=== PATIENT | male | born 1970 | race Caucasian/White ===

== ENCOUNTER → 2019-01-29 08:21 | Outpatient (CLI) | payer BC, SELFPAY ==
[2019-01-29 07:48] VITALS: BMI 33.3
--- NOTE | 2019-01-29 08:43 | EKG12_ITS ---
Test Reason : HTN, PALP Blood Pressure : / mmHG Vent. Rate : 070 BPM Atrial Rate : 070 BPM P-R Int : 154 ms QRS Dur : 092 ms QT Int : 388 ms P-R-T Axes : 069 054 036 degrees QTc Int : 419 ms Normal sinus rhythm Possible Left atrial enlargement Borderline ECG Confirmed by JOANNA PABLO, SRAVANTHI ([id number]), school photograph editor RICHIE ARELLANO ([id number]) on 02/02/2019 8:49:09 AM Referred By: Adam Cardona Confirmed By:SRAVANTHI MARSHALL MD
[2019-01-29 13:13] LABS: Absolute Lymphocyte Count 1.42 X10^3/ul (0.83-4.51); Absolute Neutrophil Count 4.6 X10^3/uL (2.0-7.7); Basophil# 0.02 X10^3/uL; Basophil% 0.3 % (0-1); Eosinophil# 0.17 X10^3/uL; Eosinophils% 2.4 % (0-5); Hematocrit 48.4 % (40-54); Hemoglobin 15.5 g/dl (13.0-16.5); Lymphocyte # 1.42 X10^3/ul (4.0); Lymphocyte % 20.1 % (19-41); Mean Corpuscular Hgb 30.5 pg (27.0-32.0); Mean Corpuscular Volume 95.1 fL (80-94); Mean Platelet Vol. 12.1 fl (6.2-12.0); Monocyte# 0.82 X10^3/uL; Monocyte% 11.6 % (0-10); Neutrophil % 65.2 % (47-70); Platelet Count 238 K/mm3 (150-450); RBC Distribution Width CV 13.6 % (11.6-14.6); RBC Distribution Width SD 46.1 fl (35.1-43.9); Red Blood Count 5.09 M/mm3 (4.6-6.2); White Blood Count 7.1 K/mm3 (4.4-11.0)
[2019-01-29 13:18] LABS: POSITIVE COUNT NO; POSITIVE DIFFERENTIAL NO; POSITIVE MORPHOLOGY NO
[2019-01-29 13:30] LABS: ALB/GLOB Ratio 1.1 RATIO (0.9-2.4); AST(SGOT) 25 U/L (15-37); Alanine Aminotransfer ALT/SGPT 47 U/L (16-61); Albumin, Serum 3.8 g/dL (3.2-5.0); Alkaline Phosphatase 80 U/L (45-117); Anion Gap 8 (5-15); BUN 10 mg/dL (7-18); BUN/Creat Ratio 10.5 RATIO (10-20); Calcium,Total 8.7 mg/dL (8.5-10.1); Chloride 107 mmol/L (98-107); Cholesterol 204 mg/dL (200); Creatinine, Serum 0.95 mg/dL (0.70-1.30); EST Glomerular Filtration Rate 90 mL/min (>60); Est Glom Filt Rate - Afr Amer 109 mL/min (>60); Globulin 3.5 g/dL (2.2-4.2); Glucose 101 mg/dL (74-106); High Density Lipoprotein 49 mg/dL; Magnesium 2.4 mg/dL (1.6-2.6); Potassium 4.1 mmol/L (3.5-5.1); Protein, Total 7.3 g/dL (6.4-8.2); Sodium Level 143 mmol/L (136-145); T4 Free Direct 0.88 ng/dL (0.76-1.46); Thyroid Stim Hormone (TSH) 0.64 uIU/mL (0.358-3.74); Triglycerides 112 mg/dL; Very Low Density Lipoprotein 22 mg/dL (5-40)
== END ==
PROVIDERS: Family Provider Internal Medicine; PCP Internal Medicine; Referring Provider Nurse Practitioner Family; Visit Provider Nurse Practitioner Family
DX: I10 Essential (primary) hypertension (principal); R00.2 Palpitations; R07.89 Other chest pain
CPT/HCPCS: 36415; 80053; 80061; 83735; 84439; 84443; 85025; 93005; 93225; 93226

== ENCOUNTER → 2019-05-20 | Outpatient (CLI) | payer BC, SELFPAY ==
[2019-05-18 14:57] VITALS: BMI 33.3
[2019-05-20 08:14] LABS: Bacteria 0 SEEN /hpf (None Seen); Mucous, Urine 0 SEEN /hpf (<or=2+); Squamous Epithelial Cells - UA 0 SEEN /hpf (0-5)
[2019-05-20 12:37] LABS: Color, Urine Yellow (Yellow); Glucose, Dipstick Normal (Normal); Ketone-Dipstick 5 mg/dl (Negative); Leukocyte Esterase-Dipstick 25 /ul (Negative); Nitrite-Dipstick Negative (Negative); Occult Blood-Urine 25 /ul (Negative); Protein-Dipstick 15 mg/dl (Negative); Specific Gravity, Urine 1.025 (1.002-1.030); Urine Bilirubin Dipstick Negative (Negative); Urine Clarity Clear (Clear); Urine Urobilinogen Normal (Normal)
[2019-05-20 12:40] LABS: Red Blood Cells-Urine 0-5 SEEN /hpf (0-5); White Blood Cells 0-5 SEEN /hpf (0-5)
[2019-05-20 14:58] LABS: Chlamydia Trachomatis by PCR Negative (Negative); Neisserai gonorrhoeae by PCR Negative (Negative); Probe Check PASS; Sample Adequacy Control PASS; Specimen Processing Control PASS
[2019-05-28 20:06] LABS: Ca Oxalate, Dihydrate 40 % (.); Ca Oxalate, Monohydrate 55 % (.)
== END | disposition home or self-care (01) ==
LOC: BIMLAB 08:13
PROVIDERS: Family Provider Internal Medicine; PCP Internal Medicine; Visit Provider Nurse Practitioner Family
DX: R30.0 Dysuria (principal); N20.0 Calculus of kidney; Z72.51 High risk heterosexual behavior
CPT/HCPCS: 81001; 82360; 87086; 87210; 87491; 87591

== ENCOUNTER → 2020-02-02 | Outpatient (CLI) | payer BC, SELFPAY ==
[2020-02-02 10:07] VITALS: BMI 34.8
--- NOTE | 2020-02-02 10:50 | EKG12_ITS ---
Test Reason : PVC Blood Pressure : / mmHG Vent. Rate : 072 BPM Atrial Rate : 072 BPM P-R Int : 160 ms QRS Dur : 102 ms QT Int : 388 ms P-R-T Axes : 072 055 050 degrees QTc Int : 424 ms Normal sinus rhythm Normal ECG Confirmed by CAMILLE DORAN ([id number]), electronic news gathering editor ELOISE BOLAND ([id number]) on 02/03/2020 7:20:25 AM Referred By: Adam Cardona Confirmed By:CAMILLE DORAN
--- NOTE | 2020-02-02 10:51 | RAD_ITS ---
STUDY: X-RAY - LUMBAR SPINE REASON FOR EXAM: Male, 49 years old. CHRONIC LOW BACK PAIN, MORE RECENTLY ACUTE TECHNIQUE: 3 view(s) of the lumbar spine were obtained. COMPARISON: 08/01/2016 FINDINGS: Normal lumbar lordosis. Mild dextroscoliosis centered at L3. There is a normal alignment of the vertebrae. There is multilevel endplate spondylosis of the lumbar vertebrae. There is multi-level degenerative disc disease with multi-level disc space narrowing. The soft tissue structures are unremarkable. RAD/Lumbar Spine 2 or 3 Views IMPRESSION: Mild dextroscoliosis and mild diffuse degenerative disc disease. Electronically Signed: Douglas Ivan MD at 14:52 EDT Tel , Service support ,
== END | disposition home or self-care (01) ==
LOC: RAD 10:50
PROVIDERS: PCP Internal Medicine; Referring Provider Nurse Practitioner Family; Visit Provider Nurse Practitioner Family
DX: M54.41 Lumbago with sciatica, right side (principal); G89.29 Other chronic pain; I10 Essential (primary) hypertension
CPT/HCPCS: 72100; 93005

== ENCOUNTER → 2020-05-30 | Outpatient (CLI) | payer BC, SELFPAY ==
[2020-05-30 09:39] VITALS: BMI 34.8
[2020-05-30 12:48] LABS: Hematocrit 47.3 % (40-54); Hemoglobin 15.3 g/dL (13.0-16.5); Mean Corp Hgb Conc 32.3 g/dL (32-36); Mean Corpuscular Volume 95.9 fL (80-94); Mean Platelet Vol. 11.7 fl (6.2-12.0); Platelet Count 229 K/mm3 (150-450); RBC Distribution Width CV 13.2 % (11.6-14.6); RBC Distribution Width SD 46.5 fl (35.1-43.9); Red Blood Count 4.93 M/mm3 (4.6-6.2); White Blood Count 7.7 K/mm3 (4.4-11.0)
[2020-05-30 13:36] LABS: AST(SGOT) 28 U/L (15-37); Alanine Aminotransfer ALT/SGPT 58 U/L (16-61); Albumin, Serum 3.8 g/dL (3.2-5.0); Alkaline Phosphatase 87 U/L (45-117); Anion Gap 7 (5-15); BUN 13 mg/dL (7-18); BUN/Creat Ratio 13.3 RATIO (10-20); Calcium,Total 8.6 mg/dL (8.5-10.1); Chloride 104 mmol/L (98-107); Cholesterol 224 mg/dL (200); Creatinine, Serum 0.97 mg/dL (0.70-1.30); EST Glomerular Filtration Rate 87 mL/min (>60); Est Glom Filt Rate - Afr Amer 105 mL/min (>60); Globulin 3.7 g/dL (2.2-4.2); Glucose 96 mg/dL (74-106); High Density Lipoprotein 42 mg/dL; Potassium 3.7 mmol/L (3.5-5.1); Protein, Total 7.5 g/dL (6.4-8.2); Sodium Level 139 mmol/L (136-145); Thyroid Stim Hormone (TSH) 1.46 uIU/mL (0.358-3.74); Triglycerides 159 mg/dL; Very Low Density Lipoprotein 32 mg/dL (5-40)
[2020-05-31 07:33] LABS: SARS-COV-2 TOTAL ABS Nonreactive (Nonreactive)
== END | disposition home or self-care (01) ==
LOC: BIMLAB 10:06
PROVIDERS: PCP Internal Medicine; Referring Provider Nurse Practitioner Family; Visit Provider Nurse Practitioner Family
DX: E78.00 Pure hypercholesterolemia, unspecified (principal); I10 Essential (primary) hypertension; K21.9 Gastro-esophageal reflux disease without esophagitis; Z11.59 Encounter for screening for other viral diseases
CPT/HCPCS: 36415; 80053; 80061; 84443; 85027; 86769; G2023

== ENCOUNTER → 2020-10-17 07:52 | Outpatient (CLI) | payer BC, SELFPAY ==
[2020-10-04 08:59] VITALS: BMI 34.3
--- NOTE | 2020-10-17 07:57 | ECHOD_ITS ---
Reason For Study: HTN Procedure This was a 2D Doppler, Color Flow transthoracic echocardiogram. The study was technically difficult. Contrast injection was performed. Exam performed in department. Left Ventricle Normal LV size. Left ventricular systolic function is normal. The estimated ejection fraction is 65 %. Stage 1 diastolic dysfunction. No regional wall motion abnormalities noted. Right Ventricle Normal RV size. Normal systolic function. Atria Normal left atrium. Normal right atrium. Mitral Valve Normal mitral valve. Tricuspid Valve Normal tricuspid valve. Mild (1+) tricuspid valve insufficiency. Pulmonary artery systolic pressure is 25 mmHg. Aortic Valve Trisinus/trileaflet aortic valve. Pulmonic Valve Normal pulmonic valve. Great Vessels Normal aortic root. The pulmonary artery is normal size. Normal inferior vena cava. Pericardium/Pleural No pericardial effusion. Medication 22 gauge I.V. with prn adaptor inserted into right arm. Diluted definity 4ml given slow IV push to enhance endocardial definition. MMode/2D Measurements & Calculations LVIDd: 4.5 cm IVSd: 1.2 cm Ao root diam: 3.6 cm LVIDs: 3.2 cm LVPWd: 0.98 cm RVDd: 2.9 cm FS: 28.6 % LAV(MOD-bp): 41.5 ml LVAd ap4: 34.8 cm2 SV(MOD-sp4): 76.7 ml LAV(MOD-bp) Indexed: 17.7 ml/m2 EDV(MOD-sp4): 101.3 ml LAV(MOD-sp2): 46.1 ml EDV(sp4-el): 104.4 ml LAV(MOD-sp4): 31.7 ml LVAs ap4: 15.5 cm2 ESV(MOD-sp4): 24.5 ml ESV(sp4-el): 25.8 ml EF(MOD-sp4): 75.8 % EF(sp4-el): 75.3 % SV(sp4-el): 78.6 ml LA A4 area: 13.9 cm2 LA dimension(2D): 4.0 cm RA A4 area: 10.4 cm2 Time Measurements MV dec time: 0.22 sec Doppler Measurements & Calculations MV E max wayne: 104.6 cm/sec Lat Peak E' Wayne: 8.6 cm/sec Med Peak E' Wayne: 7.4 cm/sec MV A max wayne: 118.1 cm/sec E/E' lat: 12.1 E/E' med: 14.1 MV E/A: 0.89 Ao V2 max: 146.3 cm/sec LV V1 max: 136.8 cm/sec PA V2 max: 109.6 cm/sec Ao max P.6 mmHg LV V1 max P.5 mmHg TR max wayne: 238.5 cm/sec TR max P.8 mmHg Interpretation Summary Normal LV size. Left ventricular systolic function is normal. The estimated ejection fraction is 65 %. Stage 1 diastolic dysfunction. Contrast injection was performed. Ordering Physician: Luigi Jaime Referring Physician: Eri Melgar Performed By: Le Donaldson, JYOTI, RVT
== END ==
PROVIDERS: PCP Internal Medicine; Referring Provider Internal Medicine Cardiovascular Disease; Visit Provider Internal Medicine Cardiovascular Disease
DX: I10 Essential (primary) hypertension (principal)
CPT/HCPCS: 93306; Q9957; A4216; C8929

== ENCOUNTER 2021-03-09 19:16 | Emergency (ER) | payer BC, SELFPAY ==
[2020-10-04 08:59] VITALS: BMI 34.3
[2021-03-09 19:17] VITALS: BP 169/100; PULSE 77; RESP 16; TEMP 36.4; O2SAT 97; BMI 33.2
--- NOTE | 2021-03-09 19:57 | ED.DCSUM_ITS ---
- ER Visit Summary Date of Service: 03/09/21 Chief Complaint: Left ring finger laceration History of Present Illness: The patient is a 50 M who presents with laceration to his left ring finger that occurred today. Patient states he was putting [place] in a truck when he got his finger smashed between 2 pieces of [place]. Patient denies any paresthesias or weakness. Patient states his last tetanus is up-to-date. Patient dates the bleeding stopped after several minutes of pressure. Physical Examination: Vital signs are stable. Patient is afebrile. Patient is in no acute distress. Skin is warm and dry. There is a 3 cm curvilinear laceration over the pad of the left ring finger. There is mild bleeding. There are no foreign bodies visualized. Sensation was intact to light touch in all digits. Capillary refill was less than 2 seconds in all digits. Strength is 5/ 5 in flexion and extension of the DIP, PIP, and MP joints. Test Results: X-rays of the left ring finger were obtained. There are 3 views. On my interpretation, there is no acute fracture. There is no dislocation. There is some mild soft tissue swelling with injury. Radiologist also interpreted the x-rays and agrees. Emergency Department Course and Treatment: The wound was cleaned and irrigated with copious amounts of normal saline. The wound was anesthetized with 1% plain lidocaine via digital block. The wound was closed with 6 simple interrupted #4- 0 nylon sutures under sterile technique. Patient tolerated the procedure well. Bacitracin dressing was applied. Patient was given his first dose of Keflex here. Patient was given a prescription for Keflex. Patient was instructed to follow-up with his primary care physician in 7 days for wound recheck and suture removal. Patient understood and was agreeable with the plan. All questions were answered.. Disposition: Discharge home Impression: Laceration left ring finger This note was generated with [employer] dictation software. It may contain incorrect words, spelling, and punctuation that were not noted in review of the chart prior to signing ED Disposition - Plan for ED Patient: Disposition: Home or Assisted Living Diagnosis: Laceration of left ring finger w/o foreign body w/o damage to nail Instructions: ED Laceration, Hand: All Closures Prescriptions: Cephalexin [Keflex] 500 mg PO Q6 #40 capsule Transmission Status: Pending to [facility]/pharmacy #[id number] Referrals: Eri Melgar MD [Primary Care Provider] - 7 Days for suture removal
--- NOTE | 2021-03-09 20:00 | RAD_ITS ---
STUDY: X-RAY - LEFT HAND, ATTENTION 4TH FINGER REASON FOR EXAM: Male, 50 years old. Injury/Pain TECHNIQUE: 3 view(s) of the finger were obtained. COMPARISON: None. FINDINGS: Normal metacarpal head. Normal metacarpophalangeal joint. Normal proximal phalanx. Normal middle phalanx. Normal distal phalanx. Normal proximal interphalangeal joint. Normal distal interphalangeal joint. There is soft tissue swelling with injury at the tip of the finger RAD/Finger(s) Min 2 Views IMPRESSION: Soft tissue injury at the tip of the finger without bony involvement. Electronically Signed: Enoch Rodriguez DO at 21:07 EDT Tel [phone], Service support ,
[2021-03-09] MEDS: Cephalexin 250 MG Capsule 500 MG PO (20:05)
[2021-03-09] MEDS: Lidocaine 1% (20 ml mdv) 20 ML Vial INFILT (20:05)
== END 2021-03-09 22:17 | disposition home or self-care (01) ==
PROVIDERS: Emergency Provider Emergency Medicine; PCP Internal Medicine
DX: S61.215A Laceration without foreign body of left ring finger without damage to nail, initial encounter (principal); I10 Essential (primary) hypertension; Z72.0 Tobacco use; W26.8XXA Contact with other sharp object(s), not elsewhere classified, initial encounter; Y93.89 Activity, other specified; Y92.89 Other specified places as the place of occurrence of the external cause; Y99.8 Other external cause status
CPT/HCPCS: 12002; 73140; 99284

== ENCOUNTER → 2021-11-01 14:44 | Outpatient (CLI) | payer BC, SELFPAY ==
[2021-11-01 16:41] LABS: Absolute Lymphocyte Count 1.87 X10^3/uL (0.83-4.51); Basophil# 0.05 X10^3/uL; Basophil% 0.5 % (0-1); Eosinophil# 0.21 X10^3/uL; Eosinophils% 2.3 % (0-5); Hemoglobin 16.1 g/dL (13.0-16.5); Lymphocyte # 1.87 X10^3/ul (0.83-4.51); Lymphocyte % 20.5 % (19-41); Mean Corp Hgb Conc 33.5 g/dL (32-36); Mean Corpuscular Hgb 30.7 pg (27.0-32.0); Mean Corpuscular Volume 91.4 fL (80-94); Mean Platelet Vol. 11.8 fl (6.2-12.0); NRBC Flagged by Analyzer 0 % (0-5); Neutrophil # 5.95 X10^3/uL (2.7-7.7); Neutrophil % 65.2 % (47-70); Platelet Count 268 K/mm3 (150-450); RBC Distribution Width SD 43.2 fl (35.1-43.9); Red Blood Count 5.25 M/mm3 (4.6-6.2); White Blood Count 9.1 K/mm3 (4.4-11.0)
[2021-11-01 17:04] LABS: ALB/GLOB Ratio 0.9 RATIO (0.9-2.4); AST(SGOT) 20 U/L (15-37); Alanine Aminotransfer ALT/SGPT 43 U/L (16-61); Albumin, Serum 3.7 g/dL (3.2-5.0); Alkaline Phosphatase 94 U/L (45-117); Anion Gap 7 (5-15); BUN 12 mg/dL (7-18); BUN/Creat Ratio 12.6 RATIO (10-20); Calcium,Total 8.7 mg/dL (8.5-10.1); Chloride 106 mmol/L (98-107); Creatinine, Serum 0.95 mg/dL (0.70-1.30); EST Glomerular Filtration Rate 89 mL/min (>60); Est Glom Filt Rate - Afr Amer 108 mL/min (>60); Globulin 3.9 g/dL (2.2-4.2); Glucose 98 mg/dL (74-106); Potassium 3.8 mmol/L (3.5-5.1); Protein, Total 7.6 g/dL (6.4-8.2); Sodium Level 140 mmol/L (136-145); T4 Free Direct 0.89 ng/dL (0.76-1.46); Thyroid Stim Hormone (TSH) 1.45 uIU/mL (0.358-3.74)
[2021-11-01 17:05] LABS: Microalbumin,Random Urine 35.3 mg/L (NO RANGE EST.); Microalbumin:Creatinine Ratio 14.1 mg/g CRE (<30 mg/g CRE)
== END ==
PROVIDERS: PCP Internal Medicine; Referring Provider Physician Assistant; Visit Provider Physician Assistant
DX: I10 Essential (primary) hypertension (principal); R42 Dizziness and giddiness; Z13.29 Encounter for screening for other suspected endocrine disorder
CPT/HCPCS: 36415; 80053; 82043; 82570; 84439; 84443; 85025

== ENCOUNTER 2022-02-06 09:53 | Outpatient (CLI) | payer BC, SELFPAY ==
[2022-02-06 10:26] LABS: Bacteria 0 SEEN /hpf (None Seen); Mucous, Urine 0 SEEN /hpf (<or=2+); Red Blood Cells-Urine 0 SEEN /hpf (0-5); Squamous Epithelial Cells - UA 0 SEEN /hpf (0-5); White Blood Cells 0 SEEN /hpf (0-5)
[2022-02-06 12:17] LABS: Color, Urine Yellow (Yellow); Glucose, Dipstick Normal (Normal); Ketone-Dipstick Negative (Negative); Leukocyte Esterase-Dipstick Negative /ul (Negative); Nitrite-Dipstick Negative (Negative); Occult Blood-Urine Negative /ul (Negative); Protein-Dipstick Negative (Negative); Urine Bilirubin Dipstick Negative (Negative); Urine Clarity Clear (Clear); Urine Urobilinogen Normal (Normal)
[2022-02-06 14:53] LABS: Chlamydia Trachomatis by PCR Negative (Negative); Neisserai gonorrhoeae by PCR Negative (Negative); Probe Check PASS; Sample Adequacy Control PASS; Specimen Processing Control PASS
== END 2022-02-06 23:59 | disposition home or self-care (01) ==
LOC: BIMLAB 09:54
PROVIDERS: PCP Internal Medicine; Visit Provider Nurse Practitioner Family
DX: R30.0 Dysuria (principal); Z12.5 Encounter for screening for malignant neoplasm of prostate
CPT/HCPCS: 36415; 81001; 84153; 87086; 87491; 87591; G0103

== ENCOUNTER → 2022-12-09 | Outpatient (CLI) | payer BC, SELFPAY ==
[2022-12-09 12:03] LABS: Absolute Lymphocyte Count 1.76 X10^3/uL (0.83-4.51); Basophil# 0.07 X10^3/uL; Basophil% 0.9 % (0-1); Eosinophils% 3.7 % (0-5); Hematocrit 47.4 % (40-54); Hemoglobin 15.5 g/dL (13.0-16.5); Lymphocyte # 1.76 X10^3/ul (0.83-4.51); Lymphocyte % 21.5 % (19-41); Mean Corp Hgb Conc 32.7 g/dL (32-36); Mean Corpuscular Hgb 30.4 pg (27.0-32.0); Mean Corpuscular Volume 92.9 fL (80-94); Mean Platelet Vol. 12.1 fl (6.2-12.0); Monocyte# 0.97 X10^3/uL; Monocyte% 11.9 % (0-10); NRBC Flagged by Analyzer 0 % (0-5); Neutrophil # 5.01 X10^3/uL (2.7-7.7); Neutrophil % 61.3 % (47-70); Platelet Count 232 K/mm3 (150-450); RBC Distribution Width SD 44.4 fl (35.1-43.9); White Blood Count 8.2 K/mm3 (4.4-11.0)
[2022-12-09 12:32] LABS: AST(SGOT) 23 U/L (15-37); Alanine Aminotransfer ALT/SGPT 49 U/L (16-61); Albumin, Serum 3.7 g/dL (3.2-5.0); Alkaline Phosphatase 96 U/L (45-117); Anion Gap 7 (5-15); BUN 15 mg/dL (7-18); BUN/Creat Ratio 14.6 RATIO (10-20); Calcium,Total 8.9 mg/dL (8.5-10.1); Chloride 107 mmol/L (98-107); Cholesterol 237 mg/dL (200); Creatinine, Serum 1.03 mg/dL (0.70-1.30); EST Glomerular Filtration Rate 81 mL/min (>60); Est Glom Filt Rate - Afr Amer 98 mL/min (>60); Globulin 3.8 g/dL (2.2-4.2); Glucose 109 mg/dL (74-106); High Density Lipoprotein 44 mg/dL; Potassium 3.8 mmol/L (3.5-5.1); Protein, Total 7.5 g/dL (6.4-8.2); Sodium Level 140 mmol/L (136-145); Thyroid Stim Hormone (TSH) 0.91 uIU/mL (0.358-3.74); Triglycerides 125 mg/dL; Very Low Density Lipoprotein 25 mg/dL (5-40)
== END | disposition home or self-care (01) ==
LOC: BIMLAB 09:01
PROVIDERS: PCP Internal Medicine; Referring Provider Physician Assistant; Visit Provider Physician Assistant
DX: I10 Essential (primary) hypertension (principal); E78.5 Hyperlipidemia, unspecified; K21.9 Gastro-esophageal reflux disease without esophagitis; F17.200 Nicotine dependence, unspecified, uncomplicated
CPT/HCPCS: 36415; 80053; 80061; 84443; 85025

== ENCOUNTER → 2023-09-06 | Outpatient (CLI) | payer BC, SELFPAY ==
--- NOTE | 2023-09-06 07:18 | MRI_ITS ---
STUDY: MRI THORACIC SPINE WITHOUT CONTRAST REASON FOR EXAM: Male, 53 years old. pain TECHNIQUE: Standardized fat and water weighted pulse sequences were obtained in the sagittal and axial planes. COMPARISON: None. FINDINGS: Normal kyphosis of the thoracic spine. There is no substantial scoliosis. T1-2, T2-3, T3-4, T4-5, T5-6, T6-7, T7-8, T8-9, T9-10, T10-11, T11-12: Normal endplates. Normal disc hydration, heights and morphology of the corresponding intervertebral discs. Normal central canal and intervertebral neural foramina at the corresponding levels. Normal visualized thoracic cord. Normal conus medullaris that terminates at the . The soft tissue structures are unremarkable. MRI/Spine Thoracic (Routine) IMPRESSION: Normal unenhanced MRI examination of the thoracic spine. Electronically Signed: Elvis Arias MD at 19:53 EDT ,
== END | disposition home or self-care (01) ==
LOC: MRI 07:13
PROVIDERS: PCP Internal Medicine; Visit Provider Orthopaedic Surgery
DX: M51.34 Other intervertebral disc degeneration, thoracic region (principal)
CPT/HCPCS: 72146

== ENCOUNTER → 2023-12-30 | Outpatient (CLI) | payer BC, SELFPAY ==
[2023-12-30 14:14] LABS: Bacteria 0 SEEN /hpf (None Seen); Mucous, Urine 0 SEEN /hpf (<or=2+); Red Blood Cells-Urine 0 SEEN /hpf (0-5); White Blood Cells 0 SEEN /hpf (0-5)
[2023-12-30 15:20] LABS: Color, Urine Yellow (Yellow); Glucose, Dipstick Normal (Normal); Ketone-Dipstick Negative (Negative); Leukocyte Esterase-Dipstick Negative /ul (Negative); Nitrite-Dipstick Negative (Negative); Occult Blood-Urine Negative /ul (Negative); Protein-Dipstick 15 mg/dl (Negative); Specific Gravity, Urine 1.005 (1.002-1.030); Urine Bilirubin Dipstick Negative (Negative); Urine Clarity Clear (Clear); Urine Urobilinogen Normal (Normal)
[2023-12-30 15:58] LABS: Squamous Epithelial Cells - UA 0-5 SEEN /hpf (0-5)
--- OUTSIDE RECORDS SUMMARY | 2023-12-30 18:01 | XMS RPT_ITS | CCD ---
Author Name Unknown Address [address] [place] [address] Organization [facility] Care Team Providers Care Shoe Sticks Repairer Name Role Phone PAM, BETTY Unavailable Unavailable [facility] Unavailable Unavailable PAM, BETTY Unavailable Unavailable PAM, BETTY Unavailable Unavailable PAM, BETTY Unavailable Unavailable PAM, BETTY Unavailable Unavailable PAM, BETTY Unavailable Unavailable PAM, BETTY Unavailable Unavailable PAM, BETTY Unavailable Unavailable DEBORAH QUEZADA. Unavailable Unavailable WAYT, BASILIA Unavailable Unavailable WAYT, BASILIA Unavailable Unavailable PAM, BETTY E Unavailable Unavailable PAM, BETTY E Unavailable Unavailable PAM, BETTY E Unavailable Unavailable PAM, BETTY E Unavailable Unavailable PAM, BETTY E Unavailable Unavailable PAM, BETTY E Unavailable Unavailable Unavailable Primary Care Provider UnavailEri Gonzales MD Primary Care Provider KAREN MERCEDES Attending Unavailable OLEGHE, EFEWONGBE B Primary Care Unavailable TOMIC, BRYCE Referring Unavailable OLEGHE, EFEWONGBE B Primary Care Unavailable TOMIC, BRYCE Attending Unavailable OLEGHE, EFEWONGBE B Referring Unavailable OLEGHE, EFEWONGBE B Primary Care Unavailable FATMATAGHE, EFEWONGBE B Primary Care Unavailable KAREN MERCEDES Referring Unavailable KAREN MERCEDES Attending Unavailable UJMANA, EFEWONGBE B Primary Care Unavailable KAREN MERCEDES Attending Unavailable KAREN MERCEDES Referring Unavailable JUMANA, EFEWONGBE B Primary Care Unavailable Medications Current Medications Medication Drug Class(es) Dates Sig (Normalized) Sig (Original) amLODIPine 5 mg / olmesartan medoxomil 40 mg oral tablet (9 sources) Dihydropyridine Calcium Channel Christiano, Angiotensin 2 Receptor Christiano Start: 05-16-2023 End: 05-15-2024 take 1 tablet by mouth once daily amLODIPine-Olmes bernadine 5-40 mg tab Take 1 tablet by mouth once daily. 90 tablet 3 05/16/2023 05/15/2024 Active Completed/Discontinued Medications Medication Drug Class(es) Dates Sig (Normalized) Sig (Original) carvedilol 12.5 mg oral tablet (8 sources) alpha-Adrenergic Christiano, beta-Adrenergic Christiano Start: 02-18-2022 End: 05-19-2023 take 1 tablet by mouth twice daily at mealtime carvedilol (COREG) 12.5 mg tablet Take 1 tablet by mouth twice daily with meals. 180 tablet 3 05/20/2023 Active Problems Active Problems Problem Classification Problem Date Documented Da te Episodic/Chronic Disorders of lipid metabolism (1 source) Dyslipidemia; Translations: [Hyperlipidemia, unspecified] 10-16-2023 Chronic Essential hypertension (14 sources) Essential (primary) hypertension; Translations: [Essential hypertension] Onset: 01-08-2017 01-08-2017 Chronic Other nutritional; endocrine; and metabolic disorders (7 sources) Obese class I; Translations: [Obesity, unspecified] Onset: 06-15-2021 06-15-2021 Chronic Unclassified (2 sources) Unknown / UNK(Unknown) Onset: 06-04-2017 Past or Other Problems Problem Classification Problem Date Documented Da te Episodic/Chronic Cardiac dysrhythmias (2 sources) Palpitations; Translations: [Palpitations] Onset: 10-22-2017 Episodic Unclassified (1 source) FLANK PAIN/KIDNEY STONE Onset: 06-04-2017 Results Test Name Value Interpretation Reference Range Facil ity Encounters Encounter Date Encounter Type Care Provider Facility Start: 11-13-2023 End: 11-13-2023 ambulatory ERI DENNEY Facility:[facility] Start: 10-10-2023 End: 10-10-2023 ambulatory Karen Mercedes APRN.CNP Work Phone: Preventive Cardiology Procedures Date Procedure Procedure Detail Performing Clinician Start: 02-18-2022 Lipid 1996 panel - S eloisa or Plasma Karen Mercedes APRN.CNP Work Phone: Start: 09-10-2021 Radex spine lumbosac ral minimum 4 views Maksim Pérez Smith Work Phone: Plan of Treatment Date Care Activity Detail Author Start: 03-13-2028 Urine microalbumin profile DTaP,Tdap,Td Vaccine (2 - Td or Tdap) [facility] Start: 02-18-2027 Lipid 1996 panel - Serum or Plasma Lipid Screening [facility] Start: 02-18-2027 LIPID SCREEN LIPID SCREEN [facility] Start: 06-19-2026 DIABETES SCREEN DIABETES SCREEN [facility] Start: 06-19-2026 Diabetes Screening Diabetes Screening [facility] Start: 02-18-2025 DIABETES SCREEN DIABETES SCREEN [facility] Start: 07-25-2023 Influenza vaccination INFLUENZA (#1) [facility] Start: 11-24-2022 DEPRESSION ASSESSMENT DEPRESSION ASSESSMENT [facility] Start: 2021 SHINGRIX VACCINE (1 of 2) SHINGRIX VACCINE (1 of 2) [facility] Start: 07-25-2021 Influenza vaccination Flu vaccine (#1) [facility] Work Phone: Start: 2016 COLOGUARD (FIT-DNA) COLOGUARD (FIT-DNA) [facility] Start: 2016 Colonoscopy COLONOSCOPY [facility] Start: 2016 COLORECTAL CANCER SCREENING COLORECTAL CANCER SCREENING [facility] Start: [address] COLONOGRAPHY [facility] Start: 2016 FECAL OCCULT BLOOD FECAL OCCULT BLOOD [facility] Start: 2016 SIGMOIDOSCOPY SIGMOIDOSCOPY [facility] Start: 1990 Urine microalbumin profile DTAP,TDAP,TD (1 - Tdap) [facility] Start: 1989 ANNUAL PCP TEAM CHRONIC DISEASE VISIT ANNUAL PCP TEAM CHRONIC DISEASE VISIT [facility] Start: 1989 BP CONTROLLED (<130/80) BP CONTROLLED (<130/80) [facility] in Start: 1989 HEPATITIS C SCREENING HEPATITIS C SCREENING [facility] Start: 1989 HIV SCREENING HIV SCREENING [facility] Start: 1983 COVID-19 Vaccine (1) COVID-19 Vaccine (1) [facility] Work Phone: Start: 1977 PNEUMOCOCCAL (1 - PCV) PNEUMOCOCCAL (1 - PCV) [facility] Start: 1977 Pneumococcal vaccination Pneumococcal Vaccine (1 - PCV) [facility] Start: 03-05-1972 COVID-19 VACCINE (#1) COVID-19 VACCINE (#1) [facility] Start: 1971 HEPATITIS B (1 of 3 - 3-dose series) HEPATITIS B (1 of 3 - 3-dose series) [facility] Start: 1971 Hepatitis B Vaccine (1 of 3 - 3-dose series) Hepatitis B Vaccine (1 of 3 - 3-dose series) [facility] End: 07-31-2024 US RENAL ARTERY/VEIN US RENAL ARTERY/VEIN Radiology Routine Primary hypertension 1 Occurrences starting 07/02/2023 until 07/31/2024 [facility] Work Phone: Payers Date Payer Category Payer Unknown LIS CECE CASIANO PPO [id number] 2020-Present [phone] [address] [place] [address] PPO [id number] 2020 Unknown [id number] 2015 Unknown [id number] Social History Date Type Detail Facility Tobacco smoking stat [facility] Unknown if ever smoked [facility] Work Phone: Start: 1971 Sex Assigned At Not on file [facility] Work Phone: Start: 11-12-2021 Tobacco smoking stat [facility] Smokes tobacco daily [facility] Work Phone: End: 03-23-2019 History of tobacco use Cigarette Smoker [facility] Work Phone: Start: 11-12-2021 End: 05-16-2023 Cigarettes smoked current (pack per day) - Reported 0.5 [facility] Start: 11-12-2021 Tobacco use and exposure Smokeless tobacco non-user [facility] Work Phone: Start: 02-18-2022 End: 10-16-2023 Alcohol intake Current non-drinker of alcohol (finding) [facility] Start: 1970 Sex Assigned At Male [facility] Start: 02-18-2022 End: 05-16-2023 Tobacco use panel [facility] Adult Depression Screening Assessment 0 [facility] Start: 07-09-2021 Gender identity Identifies as male gender (finding) [facility] Clinical Notes 05-16-2023 to 11-13-2023 Karen Mercedes APRN.JARVIS - 10/10/2023 8:00 AM Karen Cheek APRN.CNP - 07/02/2023 2:40 PM EDTTelephone Encounter - Bryce Fung APRN.CNP - 06/19/2023 8:58 AM EDT Note Date & Type Note Facility 11-13-2023 Note HNO ID: [id number] Author: Karen Mercedes APRN.JARVIS Service: ? Author Type: Nurse Practitioner Type: Progress Notes Filed: 11/13/2023 4:34 PM Note Text: [facility] Department of Cardiovascular Medicine SECTION OF PREVENTIVE CARDIOLOGY VIRTUAL VISIT This is a virtual video visit. It required patient-provider interaction for the medical decision making as documented below. Jackson Milan has consented to this video encounter. I have communicated my name and active licensure. The patient's identity and physical location were verified at the time of this visit. Either the patient or their legal international sales representative has been informed of the risks and benefits of -- and alternatives to -- treatment through a remote evaluation and consents to proceed with the evaluation remotely. November 13, 2023 Jackson Milan CURRENT MEDS: Current Outpatient Medications Medication Sig hydrALAZINE (APRESOLINE) 10 mg tablet Take 1 tablet by mouth three times a day. carvedilol (COREG) 12.5 mg tablet Take 1 tablet by mouth twice daily with meals. amLODIPine-Olmesartan 5-40 mg tab Take 1 tablet by mouth once daily. omeprazole (PRILOSEC) 40 mg capsule Take 40 mg by mouth once daily. No current facility-administered medications for this visit. ALLERGIES: ALLERGIES No Known Allergies CHIEF COMPLAINT: Jackson Milan is a 53 year old male seen today. Patient presents with: Hypertension HISTORY OF PRESENT CARDIOVASCULAR ILLNESS: 53 year old male with history of obesity, smoking, dyslipidemia and hypertension presents for ongoing management of cardiovascular risk factors. since last visit he has felt well, currently fighting off a cold, symptoms are improving BP remains elevated with values around 150/89 158/87 not much sodium in his diet - most meals are low or no sodium, salt free pretzels for snack no structured exercise, though physically active at work Denies Chest discomfort, SOB at rest, CONKLIN, lightheadedness, dizziness, diaphoresis, N/V, orthopnea, PND, palpitations or pedal edema. CARDIAC RISK FACTORS: History question Answer Diagnosis Date Comment Hypertension : Hypertension 11/24/2013 History question Answer Diagnosis Date Comment Dyslipidemia : Dyslipidemia 08/25/2018 Exercise: Dont't know Family History of CAD: Negative Avg. Sleep Hours Per Night?: 7 STATIN INTOLERANCE: Adverse Effect History of Statin Intolerance:: No Current Statin Freq: None FAMILY AND SOCIAL HISTORY Lifestyle Tobacco Use: 0.25 packs/day Quit 03/23/2019. Types: Cigarettes Alcohol Use: No Virtual Visit, No vital signs or physical exam performed for this visit Clinical Test Results Ejection Fraction: Ejection Fraction: Normal (>50%) Lab Results: Cholesterol, Total Date Value Ref Range Status 02/18/2022 192 <200 mg/dL Final Comment: <200 mg/dL, Desirable 200-239 mg/dL, Borderline high >239 mg/dL, High Triglyceride Date Value Ref Range Status 02/18/2022 99 <150 mg/dL Final Comment: <150 mg/dL, Normal 150-199 mg/dL, Borderline high 200-499 mg/dL, High >499 mg/dL, Very high HDL Cholesterol Date Value Ref Range Status 02/18/2022 39 (L) >39 mg/dL Final Comment: 40-59 mg/dL, Acceptable >59 mg/dL, High: Negative risk factor for coronary heart disease <40 mg/dL, Low: Positive risk factor for coronary heart disease LDL Cholesterol Date Value Ref Range Status 02/18/2022 133 (H) <100 mg/dL Final Comment: <100 mg/dL, Optimal 100-129 mg/dL, Near optimal/above optimal 130-159 mg/dL, Borderline high 160-189 mg/dL, High >189 mg/dL, Very high Secondary prevention optimal LDL Cholesterol levels are recommended to be < 70 mg/dL ALT Date Value Ref Range Status 02/18/2022 25 10 - 54 U/L Final Glucose Date Value Ref Range Status 06/19/2023 94 74 - 99 mg/dL Final Comment: The [place] [employer] (ADA) provides guidance for cutoff values for fasting glucose and random glucose. The ADA defines fasting as no caloric intake for at least 8 hours. Fasting plasma glucose results between 100 to 125 mg/dL indicate increased risk for diabetes (prediabetes). Fasting plasma glucose results greater than or equal to 126 mg/dL meet the criteria for diagnosis of diabetes. In the absence of unequivocal hyperglycemia, results should be confirmed by repeat testing. In a patient with classic symptoms of hyperglycemia or hyperglycemic crisis, random plasma glucose results greater than or equal to 200 mg/dL meet the criteria for diagnosis of diabetes. Reference: Standards of Medical Care in Diabetes 2016, [place] [employer]. Diabetes Care. 2016.39(Suppl 1). Albumin/Creat Ratio Date Value Ref Range Status 02/18/2022 <22 <30 mg/g Final Comment: Adult Male and Female Nephrotic Criteria: <30 mg/g is considered normal to mildly increased 30-300 mg/g is considered moderately increased (more content not included)... [facility] 10-10-2023 Note HNO ID: [id number] Author: Karen Mercedes APRN.DOWEL SETTING MACHINE OPERATOR Service: ? Author Type: Nurse Practitioner Type: Progress Notes Filed: 10/16/2023 11:45 PM Note Text: [facility] Department of Cardiovascular Medicine SECTION OF PREVENTIVE CARDIOLOGY VIRTUAL VISIT This is a virtual video visit. It required patient-provider interaction for the medical decision making as documented below. Jackson Milan has consented to this video encounter. I have communicated my name and active licensure. The patient's identity and physical location were verified at the time of this visit. Either the patient or their legal international sales representative has been informed of the risks and benefits of -- and alternatives to -- treatment through a remote evaluation and consents to proceed with the evaluation remotely. October 10, 2023 Jackson Milan CURRENT MEDS: Current Outpatient Medications Medication Sig carvedilol (COREG) 12.5 mg tablet Take 1 tablet by mouth twice daily with meals. chlorthalidone (HYGROTON) 25 mg tablet Take 0.5 tablets by mouth once daily. amLODIPine-Olmesartan 5-40 mg tab Take 1 tablet by mouth once daily. omeprazole (PRILOSEC) 40 mg capsule Take 40 mg by mouth once daily. No current facility-administered medications for this visit. ALLERGIES: ALLERGIES No Known Allergies CHIEF COMPLAINT: Jackson Milan is a 53 year old male seen today. Patient presents with: Hypertension HISTORY OF PRESENT CARDIOVASCULAR ILLNESS: 53 year old male with history of obesity, smoking, dyslipidemia and hypertension presents for ongoing management of cardiovascular risk factors. In april he experienced back pain after starting diuretic, went to engineering technical specialist, xrays revealed diffuse idopathic hypertosis, MRI confirmed diagnosis, not bad enough to require surgery otherwise he has been fine home blood pressure values have not been good last 4-5 days 160/90 160/93 158/87 165/89 HR 50s-mid 60s 2016 he was on a blood pressure medication that was effective but caused palpitations (he does not recall name of medication) not much sodium in his diet - most meals are low or no sodium, salt free pretzels for snack no structured exercise, though physically active at work No OTC medications that contain decongestant, only taking zyrtec, ibuprofen he had EKG and echo locally, was told he has leaky heart valve Denies Chest discomfort, SOB at rest, CONKLIN, lightheadedness, dizziness, diaphoresis, N/V, orthopnea, PND, palpitations or pedal edema. CARDIAC RISK FACTORS: History question Answer Diagnosis Date Comment Hypertension : Hypertension 11/24/2013 History question Answer Diagnosis Date Comment Dyslipidemia : Dyslipidemia 08/25/2018 Exercise: Dont't know Family History of CAD: Negative Avg. Sleep Hours Per Night?: 7 STATIN INTOLERANCE: Adverse Effect History of Statin Intolerance:: No Current Statin Freq: None FAMILY AND SOCIAL HISTORY Lifestyle Tobacco Use: 0.25 packs/day Quit 03/23/2019. Types: Cigarettes Alcohol Use: No Heart sounds: S1/S2, RRR, no murmurs Lung sounds: CTA bilaterally. Carotids: +2 pulses bilaterally, no bruit. Extremities: No edema, +2 DP pulses Clinical Test Results Ejection Fraction: Ejection Fraction: Normal (>50%) Lab Results: Cholesterol, Total Date Value Ref Range Status 02/18/2022 192 <200 mg/dL Final Comment: <200 mg/dL, Desirable 200-239 mg/dL, Borderline high >239 mg/dL, High Triglyceride Date Value Ref Range Status 02/18/2022 99 <150 mg/dL Final Comment: <150 mg/dL, Normal 150-199 mg/dL, Borderline high 200-499 mg/dL, High >499 mg/dL, Very high HDL Cholesterol Date Value Ref Range Status 02/18/2022 39 (L) >39 mg/dL Final Comment: 40-59 mg/dL, Acceptable >59 mg/dL, High: Negative risk factor for coronary heart disease <40 mg/dL, Low: Positive risk factor for coronary heart disease LDL Cholesterol Date Value Ref Range Status 02/18/2022 133 (H) <100 mg/dL Final Comment: <100 mg/dL, Optimal 100-129 mg/dL, Near optimal/above optimal 130-159 mg/dL, Borderline high 160-189 mg/dL, High >189 mg/dL, Very high Secondary prevention optimal LDL Cholesterol levels are recommended to be < 70 mg/dL ALT Date Value Ref Range Status 02/18/2022 25 10 - 54 U/L Final Glucose Date Value Ref Range Status 06/19/2023 94 74 - 99 mg/dL Final Comment: The [place] Diabetes Association (ADA) provides guidance for cutoff values for fasting glucose and random glucose. The ADA defines fasting as no caloric intake for at least 8 hours. Fasting plasma glucose results between 100 to 125 mg/dL indicate increased risk for diabetes (prediabetes). Fasting plasma glucose results greater than or equal to 126 mg/dL meet the criteria for diagnosis of diabetes. In the absence of unequivocal hyperglycemia, results should be confirmed by repeat testing. In a patient wi (more content not included)... [facility] 10-10-2023 History of Presen t illness Narrative Images from the original note were not included. [facility] Department of Cardiovascular Medicine SECTION OF PREVENTIVE CARDIOLOGY VIRTUAL VISIT This is a virtual video visit. It required patient-provider interaction for the medical decision making as documented below. Jackson Milan has consented to this video encounter. I have communicated my name and active licensure. The patient's identity and physical location were verified at the time of this visit. Either the patient or their legal international sales representative has been informed of the risks and benefits of -- and alternatives to -- treatment through a remote evaluation and consents to proceed with the evaluation remotely. October 10, 2023 Jackson Milan CURRENT MEDS: Current Outpatient Medications Medication Sig carvedilol (COREG) 12.5 mg tablet Take 1 tablet by mouth twice daily with meals. chlorthalidone (HYGROTON) 25 mg tablet Take 0.5 tablets by mouth once daily. amLODIPine-Olmesartan 5-40 mg tab Take 1 tablet by mouth once daily. omeprazole (PRILOSEC) 40 mg capsule Take 40 mg by mouth once daily. No current facility-administered medications for this visit. ALLERGIES: ALLERGIES No Known Allergies CHIEF COMPLAINT: Jackson Milan is a 53 year old male seen today. Patient presents with: Hypertension HISTORY OF PRESENT CARDIOVASCULAR ILLNESS: 53 year old male with history of obesity, smoking, dyslipidemia and hypertension presents for ongoing management of cardiovascular risk factors. In april he experienced back pain after starting diuretic, went to [facility] technical specialist, xrays revealed diffuse idopathic hypertosis, MRI confirmed diagnosis, not bad enough to require surgery otherwise he has been fine home blood pressure values have not been good last 4-5 days 160/90 160/93 158/87 165/89 HR 50s-mid 60s 2016 he was on a blood pressure medication that was effective but caused palpitations (he does not recall name of medication) not much sodium in his diet - most meals are low or no sodium, salt free pretzels for snack no structured exercise, though physically active at work No OTC medications that contain decongestant, only taking zyrtec, ibuprofen he had EKG and echo locally, was told he has leaky heart valve Denies Chest discomfort, SOB at rest, CONKLIN, lightheadedness, dizziness, diaphoresis, N/V, orthopnea, PND, palpitations or pedal edema. CARDIAC RISK FACTORS: History question Answer Diagnosis Date Comment Hypertension : Hypertension 11/24/2013 History question Answer Diagnosis Date Comment Dyslipidemia : Dyslipidemia 08/25/2018 Exercise: Dont't know Family History of CAD: Negative Avg. Sleep Hours Per Night?: 7 STATIN INTOLERANCE: Adverse Effect History of Statin Intolerance:: No Current Statin Freq: None FAMILY AND SOCIAL HISTORY Lifestyle Tobacco Use: 0.25 packs/day Quit 03/23/2019. Types: Cigarettes Alcohol Use: No Heart sounds: S1/S2, RRR, no murmurs Lung sounds: CTA bilaterally. Carotids: +2 pulses bilaterally, no bruit. Extremities: No edema, +2 DP pulses Clinical Test Results Ejection Fraction: Ejection Fraction: Normal (>50%) Lab Results: Cholesterol, Total Date Value Ref Range Status 02/18/2022 192 <200 mg/dL Final Comment: <200 mg/dL, Desirable 200-239 mg/dL, Borderline high >239 mg/dL, High Triglyceride Date Value Ref Range Status 02/18/2022 99 <150 mg/dL Final Comment: <150 mg/dL, Normal 150-199 mg/dL, Borderline high 200-499 mg/dL, High >499 mg/dL, Very high HDL Cholesterol Date Value Ref Range Status 02/18/2022 39 (L) >39 mg/dL Final Comment: 40-59 mg/dL, Acceptable >59 mg/dL, High: Negative risk factor for coronary heart disease <40 mg/dL, Low: Positive risk factor for coronary heart disease LDL Cholesterol Date Value Ref Range Status 02/18/2022 133 (H) <100 mg/dL Final Comment: <100 mg/dL, Optimal 100-129 mg/dL, Near optimal/above optimal 130-159 mg/dL, Borderline high 160-189 mg/dL, High >189 mg/dL, Very high Secondary prevention optimal LDL Cholesterol levels are recommended to be < 70 mg/dL ALT Date Value Ref Range Status 02/18/2022 25 10 - 54 U/L Final Glucose Date Value Ref Range Status 06/19/2023 94 74 - 99 mg/dL Final Comment: The [place] [employer] (ADA) provides guidance for cutoff values for fasting glucose and random glucose. The ADA defines fasting as no caloric intake for at least 8 hours. Fasting plasma glucose results between 100 to 125 mg/dL indicate increased risk for diabetes (prediabetes). Fasting plasma glucose results greater than or equal to 126 mg/dL meet the criteria for diagnosis of diabetes. In the absence of unequivocal hyperglycemia, results should be confirmed by repeat testing. In a patient with classic symptoms of hyperglycemia or hyperglycemic crisis, random plasma glucose results greater than or equal to 200 mg/dL meet the criteria for diagnosis of diabetes. Reference: Standards of Medical Care in Diabetes 2016, [place] [employer]. Diabetes Care. 2016.39(Suppl 1). Albumin/Creat Ratio Date Value Ref Range Status 02/18/2022 <22 <30 mg/g Final Comment: Adult Male and Female Nephrotic Criteria: <30 mg/g is considered normal to mildly increased 30-300 mg/g is considered moderately increased >300 mg/g is considered severely increased KDIGO. (2013). KDIGO 2012 Clinical Practice Guideline for the Evaluation and Management of Chronic Kidney Disease. Official Journal of the International Society of Nephrology, 3(1), 1-150. Creatinine Date Value Ref Range Status 06/19/2023 1.13 0.73 - 1.22 mg/dL Final Potassium Date Value Ref Range Status 06/19/2023 3.6 (L) 3.7 - 5.1 mmol/L Final Patient Entered Questionnaire Scores PHQ-9 07/02/2023 PHQ-2 Score 0 PHQ-9 Score 0 MARIAM - 2/7 SCORES 07/02/2023 06/15/2021 MARIAM-2 Score 0 0 MARIAM-7 Score 1 3 PROMIS Global Health - (T-Scores - the mean of general population = 50. Five points is a clinically meaningful difference.) 07/02/2023 06/15/2021 Physical T-Score 54.1 50.8 Mental T-Score 45.8 48.3 IMPRESSION: In summary, Mr. Milan is a 53 year old male who was referred to the [facility] because of obesity, smoking, dyslipidemia and hypertension PLAN: The results of this assessment were discussed with the patient. We have mutually agreed upon the following plans and goals: Carotid atherosclerosis 20-39% stenosis bilaterally per carotid ultrasound 02/27/22 PLAN: -continue to monitor Hyperlipidemia: Total Cholesterol, Nonfasting 192 02/18/2022 Total Cholesterol, Nonfasting 213 06/15/2021 Triglycerides, Nonfasting 99 02/18/2022 Triglycerides, Nonfasting 106 06/15/2021 HDL Cholesterol, Nonfasting 39 02/18/2022 HDL Cholesterol, Nonfasting 40 06/15/2021 LDL Cholesterol, Nonfasting 133 02/18/2022 LDL Cholesterol, Nonfasting 152 06/15/2021 PLAN: -check fasting lipid panel Hypertension: home BP remains elevated he experienced mid back pain/spasms since starting chlorthalidone he had LE edema with amlodipine 10mg with miniminal change in BP PLAN: -start hydralazine 10mg three times daily -continue other BP medications at current dose -contact our office if values are consistently >130/90 -arrange renal ultrasound Exercise/Weight/Nutrition: healthy food choices, not much sodium in his diet - most meals are low or no sodium, salt free pretzels for snack he does drink some coke (2 per day), not much, one cup of decaf coffee/day no structured exercise, physically active throughout the day PLAN: -encouraged routine cardio exercise, goal 3-5x/week, 30-45 mins per session -Weight loss goal is 5-10lbs over the next several months (slow/consistent weight loss) -Follow a Mediterranean diet: Choose plenty of whole or plant based foods-fruit, vegetables, whole grains, and nuts. Choose monounsaturated fat from olive oil, olives, nuts, and avocado. [place] 3 fats are another heart healthy fat found in tuna, salmon, flaxseed, and walnuts. Limit foods high in sodium, saturated fat, and cholesterol. -Limit portion sizes Tobacco Use: Ongoing. Has decreased # of cigarettes/day significantly.currently smoking 10-12 cigarettes per day - he typically quits cold turkey, does not want to try pharmacological options PLAN: -Discussed cardiovascular disease risk -Smoking cessation encouraged -contact our office if further quit support would be helpful OTHER: none HEALTH MAINTENANCE: Please follow-up with your Primary Care Physician and review your health maintenance to ensure it is up to date. MEDICATION CHANGES: -start hydralazine 10mg three times daily Physicians and Nurse Practitioners work closely together in Preventive Cardiology. If at any time you would like to see a Physician for a visit, please let us know. [facility]: Dr Brewer 06/15/21 AMBULATORY PATIENT EDUCATION Topic: Hyperlipidemia, Hypertension, Exercise and Nutrition Instruction Provided To: Patient Cognitive Ability: Alert/Oriented Barriers: None Motivation to Learn: Interested Methods of Instruction: Verbal instruction and/or handouts. Patient Leans Best By: Multiple Methods Patient Verbalized: Understanding I personally spent 25 minutes in total time involved in the management and care of this patient. Karen Mercedes APRN.JARVIS documented in this encounter [facility] 07-02-2023 Note HNO ID: [id number] Author: Karen Mercedes APRN.CNP Service: ? Author Type: Nurse Practitioner Type: Progress Notes Filed: 07/07/2023 10:55 PM Note Text: [facility] Department of Cardiovascular Medicine SECTION OF PREVENTIVE CARDIOLOGY VIRTUAL VISIT This is a virtual video visit. It required patient-provider interaction for the medical decision making as documented below. Jackson Milan has consented to this video encounter. I have communicated my name and active licensure. The patient's identity and physical location were verified at the time of this visit. Either the patient or their legal international sales representative has been informed of the risks and benefits of -- and alternatives to -- treatment through a remote evaluation and consents to proceed with the evaluation remotely. July 02, 2023 Jackson Milan CURRENT MEDS: Current Outpatient Medications Medication Sig carvedilol (COREG) 12.5 mg tablet Take 1 tablet by mouth twice daily with meals. chlorthalidone (HYGROTON) 25 mg tablet Take 0.5 tablets by mouth once daily. amLODIPine-Olmesartan 5-40 mg tab Take 1 tablet by mouth once daily. omeprazole (PRILOSEC) 40 mg capsule Take 40 mg by mouth once daily. No current facility-administered medications for this visit. ALLERGIES: ALLERGIES No Known Allergies CHIEF COMPLAINT: Jackson Milan is a 52 year old male seen today. Patient presents with: Hypertension HISTORY OF PRESENT CARDIOVASCULAR ILLNESS: 52 year old male with history of obesity, smoking, dyslipidemia and hypertension presents for ongoing management of cardiovascular risk factors. started weight watchers last week not much sodium in his diet - most meals are low or no sodium, salt free pretzels for snack no structured exercise, though physically active at work No OTC medications that contain decongestant, only taking zyrtec, ibuprofen he had EKG and echo locally, was told he has leaky heart valve Denies Chest discomfort, SOB at rest, CONKLIN, lightheadedness, dizziness, diaphoresis, N/V, orthopnea, PND, palpitations or pedal edema. CARDIAC RISK FACTORS: History question Answer Diagnosis Date Comment Hypertension : Hypertension 11/24/2013 History question Answer Diagnosis Date Comment Dyslipidemia : Dyslipidemia 08/25/2018 Exercise: Dont't know Family History of CAD: Negative Avg. Sleep Hours Per Night?: 7 STATIN INTOLERANCE: Adverse Effect History of Statin Intolerance:: No Current Statin Freq: None FAMILY AND SOCIAL HISTORY Lifestyle Tobacco Use: 0.25 packs/day Quit 03/23/2019. Types: Cigarettes Alcohol Use: No Heart sounds: S1/S2, RRR, no murmurs Lung sounds: CTA bilaterally. Carotids: +2 pulses bilaterally, no bruit. Extremities: No edema, +2 DP pulses Clinical Test Results Ejection Fraction: Ejection Fraction: Normal (>50%) Lab Results: Cholesterol, Total Date Value Ref Range Status 02/18/2022 192 <200 mg/dL Final Comment: <200 mg/dL, Desirable 200-239 mg/dL, Borderline high >239 mg/dL, High Triglyceride Date Value Ref Range Status 02/18/2022 99 <150 mg/dL Final Comment: <150 mg/dL, Normal 150-199 mg/dL, Borderline high 200-499 mg/dL, High >499 mg/dL, Very high HDL Cholesterol Date Value Ref Range Status 02/18/2022 39 (L) >39 mg/dL Final Comment: 40-59 mg/dL, Acceptable >59 mg/dL, High: Negative risk factor for coronary heart disease <40 mg/dL, Low: Positive risk factor for coronary heart disease LDL Cholesterol Date Value Ref Range Status 02/18/2022 133 (H) <100 mg/dL Final Comment: <100 mg/dL, Optimal 100-129 mg/dL, Near optimal/above optimal 130-159 mg/dL, Borderline high 160-189 mg/dL, High >189 mg/dL, Very high Secondary prevention optimal LDL Cholesterol levels are recommended to be < 70 mg/dL ALT Date Value Ref Range Status 02/18/2022 25 10 - 54 U/L Final Glucose Date Value Ref Range Status 06/19/2023 94 74 - 99 mg/dL Final Comment: The [place] Diabetes [employer] (ADA) provides guidance for cutoff values for fasting glucose and random glucose. The ADA defines fasting as no caloric intake for at least 8 hours. Fasting plasma glucose results between 100 to 125 mg/dL indicate increased risk for diabetes (prediabetes). Fasting plasma glucose results greater than or equal to 126 mg/dL meet the criteria for diagnosis of diabetes. In the absence of unequivocal hyperglycemia, results should be confirmed by repeat testing. In a patient with classic symptoms of hyperglycemia or hyperglycemic crisis, random plasma glucose results greater than or equal to 200 mg/dL meet the criteria for diagnosis of diabetes. Reference: Standards of Medical Care in Diabetes 2016, [place] [employer]. Diabetes Care. 2016.39(Suppl 1). Albumin/Creat Ratio Date Value Ref Range Status 02/18/2022 <22 <30 mg/g Final Comment: Adult Male and Female Nephrotic Crit (more content not included)... [facility] 07-02-2023 History of Presen t illness Narrative Images from the original note were not included. [facility] Department of Cardiovascular Medicine SECTION OF PREVENTIVE CARDIOLOGY VIRTUAL VISIT This is a virtual video visit. It required patient-provider interaction for the medical decision making as documented below. Jackson Milan has consented to this video encounter. I have communicated my name and active licensure. The patient's identity and physical location were verified at the time of this visit. Either the patient or their legal international sales representative has been informed of the risks and benefits of -- and alternatives to -- treatment through a remote evaluation and consents to proceed with the evaluation remotely. July 02, 2023 Jackson Milan CURRENT MEDS: Current Outpatient Medications Medication Sig carvedilol (COREG) 12.5 mg tablet Take 1 tablet by mouth twice daily with meals. chlorthalidone (HYGROTON) 25 mg tablet Take 0.5 tablets by mouth once daily. amLODIPine-Olmesartan 5-40 mg tab Take 1 tablet by mouth once daily. omeprazole (PRILOSEC) 40 mg capsule Take 40 mg by mouth once daily. No current facility-administered medications for this visit. ALLERGIES: ALLERGIES No Known Allergies CHIEF COMPLAINT: Jackson Milan is a 52 year old male seen today. Patient presents with: Hypertension HISTORY OF PRESENT CARDIOVASCULAR ILLNESS: 52 year old male with history of obesity, smoking, dyslipidemia and hypertension presents for ongoing management of cardiovascular risk factors. started weight watchers last week not much sodium in his diet - most meals are low or no sodium, salt free pretzels for snack no structured exercise, though physically active at work No OTC medications that contain decongestant, only taking zyrtec, ibuprofen he had EKG and echo locally, was told he has leaky heart valve Denies Chest discomfort, SOB at rest, CONKLIN, lightheadedness, dizziness, diaphoresis, N/V, orthopnea, PND, palpitations or pedal edema. CARDIAC RISK FACTORS: History question Answer Diagnosis Date Comment Hypertension : Hypertension 11/24/2013 History question Answer Diagnosis Date Comment Dyslipidemia : Dyslipidemia 08/25/2018 Exercise: Dont't know Family History of CAD: Negative Avg. Sleep Hours Per Night?: 7 STATIN INTOLERANCE: Adverse Effect History of Statin Intolerance:: No Current Statin Freq: None FAMILY AND SOCIAL HISTORY Lifestyle Tobacco Use: 0.25 packs/day Quit 03/23/2019. Types: Cigarettes Alcohol Use: No Heart sounds: S1/S2, RRR, no murmurs Lung sounds: CTA bilaterally. Carotids: +2 pulses bilaterally, no bruit. Extremities: No edema, +2 DP pulses Clinical Test Results Ejection Fraction: Ejection Fraction: Normal (>50%) Lab Results: Cholesterol, Total Date Value Ref Range Status 02/18/2022 192 <200 mg/dL Final Comment: <200 mg/dL, Desirable 200-239 mg/dL, Borderline high >239 mg/dL, High Triglyceride Date Value Ref Range Status 02/18/2022 99 <150 mg/dL Final Comment: <150 mg/dL, Normal 150-199 mg/dL, Borderline high 200-499 mg/dL, High >499 mg/dL, Very high HDL Cholesterol Date Value Ref Range Status 02/18/2022 39 (L) >39 mg/dL Final Comment: 40-59 mg/dL, Acceptable >59 mg/dL, High: Negative risk factor for coronary heart disease <40 mg/dL, Low: Positive risk factor for coronary heart disease LDL Cholesterol Date Value Ref Range Status 02/18/2022 133 (H) <100 mg/dL Final Comment: <100 mg/dL, Optimal 100-129 mg/dL, Near optimal/above optimal 130-159 mg/dL, Borderline high 160-189 mg/dL, High >189 mg/dL, Very high Secondary prevention optimal LDL Cholesterol levels are recommended to be < 70 mg/dL ALT Date Value Ref Range Status 02/18/2022 25 10 - 54 U/L Final Glucose Date Value Ref Range Status 06/19/2023 94 74 - 99 mg/dL Final Comment: The [place] Diabetes [employer] (ADA) provides guidance for cutoff values for fasting glucose and random glucose. The ADA defines fasting as no caloric intake for at least 8 hours. Fasting plasma glucose results between 100 to 125 mg/dL indicate increased risk for diabetes (prediabetes). Fasting plasma glucose results greater than or equal to 126 mg/dL meet the criteria for diagnosis of diabetes. In the absence of unequivocal hyperglycemia, results should be confirmed by repeat testing. In a patient with classic symptoms of hyperglycemia or hyperglycemic crisis, random plasma glucose results greater than or equal to 200 mg/dL meet the criteria for diagnosis of diabetes. Reference: Standards of Medical Care in Diabetes 2016, [place] [employer]. Diabetes Care. 2016.39(Suppl 1). Albumin/Creat Ratio Date Value Ref Range Status 02/18/2022 <22 <30 mg/g Final Comment: Adult Male and Female Nephrotic Criteria: <30 mg/g is considered normal to mildly increased 30-300 mg/g is considered moderately increased >300 mg/g is considered severely increased KDIGO. (2013). KDIGO 2012 Clinical Practice Guideline for the Evaluation and Management of Chronic Kidney Disease. Official Journal of the International Society of Nephrology, 3(1), 1-150. Creatinine Date Value Ref Range Status 06/19/2023 1.13 0.73 - 1.22 mg/dL Final Potassium Date Value Ref Range Status 06/19/2023 3.6 (L) 3.7 - 5.1 mmol/L Final Patient Entered Questionnaire Scores PHQ-9 07/02/2023 06/15/2021 Score 0 0 MARIAM - 7 SCORES 07/02/2023 06/15/2021 MARIAM-7 Score 1 3 PROMIS Global Health - (T-Scores - the mean of general population = 50. Five points is a clinically meaningful difference.) 07/02/2023 06/15/2021 Physical T-Score 54.1 50.8 Mental T-Score 45.8 48.3 IMPRESSION: In summary, Mr. Milan is a 52 year old male who was referred to the [facility] because of obesity, smoking, dyslipidemia and hypertension PLAN: The results of this assessment were discussed with the patient. We have mutually agreed upon the following plans and goals: Carotid atherosclerosis 20-39% stenosis bilaterally per carotid ultrasound 02/27/22 PLAN: -continue to monitor Hyperlipidemia: Total Cholesterol, Nonfasting 192 02/18/2022 Total Cholesterol, Nonfasting 213 06/15/2021 Triglycerides, Nonfasting 99 02/18/2022 Triglycerides, Nonfasting 106 06/15/2021 HDL Cholesterol, Nonfasting 39 02/18/2022 HDL Cholesterol, Nonfasting 40 06/15/2021 LDL Cholesterol, Nonfasting 133 02/18/2022 LDL Cholesterol, Nonfasting 152 06/15/2021 PLAN: -check fasting lipid panel Hypertension: home BP has trended in the same area - yesterday am 137/82, 153/84, 143/85 in April most readings in the 130-140s/78 he experienced mid back pain/spasms since starting chlorthalidone he had LE edema with amlodipine 10mg with miniminal change in BP PLAN: -Continue current regimen for now with focus on weight loss and smoking cessation -contact our office if values are consistently >130/90 -arrange renal ultrasound Exercise/Weight/Nutrition: healthy food choices, not much sodium in his diet - most meals are low or no sodium, salt free pretzels for snack he does drink some coke (2 per day), not much, one cup of decaf coffee/day no structured exercise, physically active throughout the day PLAN: -encouraged routine cardio exercise, goal 3-5x/week, 30-45 mins per session -Weight loss goal is 5-10lbs over the next several months (slow/consistent weight loss) -Follow a Mediterranean diet: Choose plenty of whole or plant based foods-fruit, vegetables, whole grains, and nuts. Choose monounsaturated fat from olive oil, olives, nuts, and avocado. [place] 3 fats are another heart healthy fat found in tuna, salmon, flaxseed, and walnuts. Limit foods high in sodium, saturated fat, and cholesterol. -Limit portion sizes Tobacco Use: Ongoing. Has decreased # of cigarettes/day significantly.currently smoking 10-12 cigarettes per day - he chose quit date of March 06 - he typically quits cold turkey, does not want to try pharmacological options PLAN: -Discussed cardiovascular disease risk -Smoking cessation encouraged -contact our office if further quit support would be helpful OTHER: none HEALTH MAINTENANCE: Please follow-up with your Primary Care Physician and review your health maintenance to ensure it is up to date. MEDICATION CHANGES: none Physicians and Nurse Practitioners work closely together in Preventive Cardiology. If at any time you would like to see a Physician for a visit, please let us know. Last visit with [facility] physician: Dr Brewer 06/15/21 AMBULATORY PATIENT EDUCATION Topic: Hyperlipidemia, Hypertension, Exercise and Nutrition Instruction Provided To: Patient Cognitive Ability: Alert/Oriented Barriers: None Motivation to Learn: Interested Methods of Instruction: Verbal instruction and/or handouts. Patient Leans Best By: Multiple Methods Patient Verbalized: Understanding I personally spent 25 minutes in total time involved in the management and care of this patient. Karen Mercedes APRN.CNP documented in this encounter [facility] 06-19-2023 Miscellaneous Notes Lab orders placed Bryce Fung APRN.CNP Pt came in stating he needed lab work done from Bryce Fung but nothing in active requests. Please review and advise Darling Christian documented in this encounter [facility] 05-16-2023 Note HNO ID: [id number] Author: Bryce Fung APRN.CNP Service: ? Author Type: Nurse Practitioner Type: Progress Notes Filed: 05/19/2023 7:14 AM Note Text: [facility] Department of Cardiovascular Medicine SECTION OF PREVENTIVE CARDIOLOGY VIRTUAL VISIT This is a virtual video visit. It required patient-provider interaction for the medical decision making as documented below. Jackson Milan has consented to this video encounter. I have communicated my name and active licensure. The patient's identity and physical location were verified at the time of this visit. Either the patient or their legal international sales representative has been informed of the risks and benefits of -- and alternatives to -- treatment through a remote evaluation and consents to proceed with the evaluation remotely. 05/16/2023 Jackson Milan CURRENT MEDS: Current Outpatient Medications Medication Sig amLODIPine-Olmesartan 10-40 mg tab Take 1 tablet by mouth once daily. carvedilol (COREG) 12.5 mg tablet Take 1 tablet by mouth twice daily with meals. omeprazole (PRILOSEC) 40 mg capsule Take 40 mg by mouth once daily. No current facility-administered medications for this visit. ALLERGIES: ALLERGIES No Known Allergies CHIEF COMPLAINT: Jackson Milan is a 52 year old White male seen today. Patient presents with: Follow Up HISTORY OF PRESENT CARDIOVASCULAR ILLNESS: 52 year old male with history of obesity, smoking, dyslipidemia and hypertension. Presents for LE swelling. Notes this began after beginning amlodipine -olmesartan 10-40 mg every day. Home BP trends 139/81 HR 60's Chest pain: No Claudication: No SOB: No Orthopnea: No PND: No LE: yes Lightheadedness/dizziness: No Palpitations:No Bleeding/bruising: No CARDIAC RISK FACTORS: History question Answer Diagnosis Date Comment Hypertension : Hypertension 11/24/2013 History question Answer Diagnosis Date Comment Dyslipidemia : Dyslipidemia 08/25/2018 Exercise: Dont't know Family History of CAD: Negative Avg. Sleep Hours Per Night?: 7 STATIN INTOLERANCE: Adverse Effect History of Statin Intolerance:: No Current Statin Freq: None USE OF PCSK9 INHIBITORS: CARDIOVASCULAR DISEASE HISTORY: CAD EVENTS; PVD EVENTS: CVD EVENTS: FAMILY AND SOCIAL HISTORY Lifestyle Tobacco Use: 0.5 packs/day Last attempt to quit 03/23/2019. Types: Cigarettes Alcohol Use: No PHYSICAL EXAMINATION: No video exam was performed Clinical Test Results Ejection Fraction: Ejection Fraction: Normal (>50%) Lab Results: Cholesterol, Total Date Value Ref Range Status 02/18/2022 192 <200 mg/dL Final Comment: <200 mg/dL, Desirable 200-239 mg/dL, Borderline high >239 mg/dL, High Triglyceride Date Value Ref Range Status 02/18/2022 99 <150 mg/dL Final Comment: <150 mg/dL, Normal 150-199 mg/dL, Borderline high 200-499 mg/dL, High >499 mg/dL, Very high HDL Cholesterol Date Value Ref Range Status 02/18/2022 39 (L) >39 mg/dL Final Comment: 40-59 mg/dL, Acceptable >59 mg/dL, High: Negative risk factor for coronary heart disease <40 mg/dL, Low: Positive risk factor for coronary heart disease LDL Cholesterol Date Value Ref Range Status 02/18/2022 133 (H) <100 mg/dL Final Comment: <100 mg/dL, Optimal 100-129 mg/dL, Near optimal/above optimal 130-159 mg/dL, Borderline high 160-189 mg/dL, High >189 mg/dL, Very high Secondary prevention optimal LDL Cholesterol levels are recommended to be < 70 mg/dL ALT Date Value Ref Range Status 02/18/2022 25 10 - 54 U/L Final Glucose Date Value Ref Range Status 02/18/2022 104 (H) 74 - 99 mg/dL Final Comment: The [place] Diabetes [employer] (ADA) provides guidance for cutoff values for fasting glucose and random glucose. The ADA defines fasting as no caloric intake for at least 8 hours. Fasting plasma glucose results between 100 to 125 mg/dL indicate increased risk for diabetes (prediabetes). Fasting plasma glucose results greater than or equal to 126 mg/dL meet the criteria for diagnosis of diabetes. In the absence of unequivocal hyperglycemia, results should be confirmed by repeat testing. In a patient with classic symptoms of hyperglycemia or hyperglycemic crisis, random plasma glucose results greater than or equal to 200 mg/dL meet the criteria for diagnosis of diabetes. Reference: Standards of Medical Care in Diabetes 2016, [place] [employer]. Diabetes Care. 2016.39(Suppl 1). Albumin/Creat Ratio Date Value Ref Range Status 02/18/2022 <22 <30 mg/g Final Comment: Adult Male and Female Nephrotic Criteria: <30 mg/g is considered normal to mildly increased 30-300 mg/g is considered moderately increased >300 mg/g is considered severely increased KDIGO. (2013). KDIGO 2012 Clinical Practice Guideline for the Evaluation and Management of Chronic Kidney Disease. Official Journal of the International Soci (more content not included)... [facility] 05-16-2023 History of Presen t illness Narrative Images from the original note were not included. [facility] Department of Cardiovascular Medicine SECTION OF PREVENTIVE CARDIOLOGY VIRTUAL VISIT This is a virtual video visit. It required patient-provider interaction for the medical decision making as documented below. Jackson Milan has consented to this video encounter. I have communicated my name and active licensure. The patient's identity and physical location were verified at the time of this visit. Either the patient or their legal international sales representative has been informed of the risks and benefits of -- and alternatives to -- treatment through a remote evaluation and consents to proceed with the evaluation remotely. 05/16/2023 Jackson Milan CURRENT MEDS: Current Outpatient Medications Medication Sig amLODIPine-Olmesartan 10-40 mg tab Take 1 tablet by mouth once daily. carvedilol (COREG) 12.5 mg tablet Take 1 tablet by mouth twice daily with meals. omeprazole (PRILOSEC) 40 mg capsule Take 40 mg by mouth once daily. No current facility-administered medications for this visit. ALLERGIES: ALLERGIES No Known Allergies CHIEF COMPLAINT: Jackson Milan is a 52 year old White male seen today. Patient presents with: Follow Up HISTORY OF PRESENT CARDIOVASCULAR ILLNESS: 52 year old male with history of obesity, smoking, dyslipidemia and hypertension. Presents for LE swelling. Notes this began after beginning amlodipine -olmesartan 10-40 mg every day. Home BP trends 139/81 HR 60's Chest pain: No Claudication: No SOB: No Orthopnea: No PND: No LE: yes Lightheadedness/dizziness: No Palpitations:No Bleeding/bruising: No CARDIAC RISK FACTORS: History question Answer Diagnosis Date Comment Hypertension : Hypertension 11/24/2013 History question Answer Diagnosis Date Comment Dyslipidemia : Dyslipidemia 08/25/2018 Exercise: Dont't know Family History of CAD: Negative Avg. Sleep Hours Per Night?: 7 STATIN INTOLERANCE: Adverse Effect History of Statin Intolerance:: No Current Statin Freq: None USE OF PCSK9 INHIBITORS: CARDIOVASCULAR DISEASE HISTORY: CAD EVENTS; PVD EVENTS: CVD EVENTS: FAMILY AND SOCIAL HISTORY Lifestyle Tobacco Use: 0.5 packs/day Last attempt to quit 03/23/2019. Types: Cigarettes Alcohol Use: No PHYSICAL EXAMINATION: No video exam was performed Clinical Test Results Ejection Fraction: Ejection Fraction: Normal (>50%) Lab Results: Cholesterol, Total Date Value Ref Range Status 02/18/2022 192 <200 mg/dL Final Comment: <200 mg/dL, Desirable 200-239 mg/dL, Borderline high >239 mg/dL, High Triglyceride Date Value Ref Range Status 02/18/2022 99 <150 mg/dL Final Comment: <150 mg/dL, Normal 150-199 mg/dL, Borderline high 200-499 mg/dL, High >499 mg/dL, Very high HDL Cholesterol Date Value Ref Range Status 02/18/2022 39 (L) >39 mg/dL Final Comment: 40-59 mg/dL, Acceptable >59 mg/dL, High: Negative risk factor for coronary heart disease <40 mg/dL, Low: Positive risk factor for coronary heart disease LDL Cholesterol Date Value Ref Range Status 02/18/2022 133 (H) <100 mg/dL Final Comment: <100 mg/dL, Optimal 100-129 mg/dL, Near optimal/above optimal 130-159 mg/dL, Borderline high 160-189 mg/dL, High >189 mg/dL, Very high Secondary prevention optimal LDL Cholesterol levels are recommended to be < 70 mg/dL ALT Date Value Ref Range Status 02/18/2022 25 10 - 54 U/L Final Glucose Date Value Ref Range Status 02/18/2022 104 (H) 74 - 99 mg/dL Final Comment: The [place] [employer] (ADA) provides guidance for cutoff values for fasting glucose and random glucose. The ADA defines fasting as no caloric intake for at least 8 hours. Fasting plasma glucose results between 100 to 125 mg/dL indicate increased risk for diabetes (prediabetes). Fasting plasma glucose results greater than or equal to 126 mg/dL meet the criteria for diagnosis of diabetes. In the absence of unequivocal hyperglycemia, results should be confirmed by repeat testing. In a patient with classic symptoms of hyperglycemia or hyperglycemic crisis, random plasma glucose results greater than or equal to 200 mg/dL meet the criteria for diagnosis of diabetes. Reference: Standards of Medical Care in Diabetes 2016, [place] [employer]. Diabetes Care. 2016.39(Suppl 1). Albumin/Creat Ratio Date Value Ref Range Status 02/18/2022 <22 <30 mg/g Final Comment: Adult Male and Female Nephrotic Criteria: <30 mg/g is considered normal to mildly increased 30-300 mg/g is considered moderately increased >300 mg/g is considered severely increased KDIGO. (2013). KDIGO 2012 Clinical Practice Guideline for the Evaluation and Management of Chronic Kidney Disease. Official Journal of the International Society of Nephrology, 3(1), 1-150. Creatinine Date Value Ref Range Status 02/18/2022 1.03 0.73 - 1.22 mg/dL Final Potassium Date Value Ref Range Status 02/18/2022 4.1 3.7 - 5.1 mmol/L Final Patient Entered Questionnaire Scores PHQ-9 06/15/2021 Score 0 MARIAM - 7 SCORES 06/15/2021 MARIAM-7 Score 3 PROMIS Global Health - (T-Scores - the mean of general population = 50. Five points is a clinically meaningful difference.) 06/15/2021 Physical T-Score 50.8 Mental T-Score 48.3 IMPRESSION: In summary, Mr. Milan is a 52 year old male who was referred to the [facility] because of Tobacco Use, CVD and Hypertension PLAN: The results of this assessment were discussed with the patient. We have mutually agreed upon the following plans and goals: Carotid Stenosis: 20-39% bilaterally Continue to follow with Dr. Brewer Hypertension: increased swelling likely due to amlodipine. Will decrease amlodipine-olmesartan 5-40 mg and add chlorthalidone 12.5 mg every day PLAN: -Home blood pressure monitoring. Call if above 130/80. -Low sodium/DASH diet. 8010-1152 mg per day We now recommend the follow anti-hypertensive medication regimen 1) Amlodipine-Olmesartan 5-40 mg nightly 2) Carvedilol 12.5 mg BID 3) Chlorthalidone 12.5 mg every day - labs 2 weeks We discussed the need for appropriate testing following medication initiation given that risks associated with antihypertensive medications include, but are not limited to, hypotension, acute kidney injury, and electrolyte abnormalities Exercise: PLAN: -AHA recommends 150 minutes of moderately intense activity per week Nutrition /Weight: PLAN: -Low sodium diet less than 2300 mg day -Recommend BMI less than 27 -Follow a Mediterranean diet: Choose plenty of whole or plant based foods-fruit, vegetables, whole grains, and nuts. Choose monounsaturated fat from olive oil, olives, nuts, and avocado. [place] 3 fats are another heart healthy fat found in tuna, salmon, flaxseed, and walnuts. Limit foods high in sodium, saturated fat, and cholesterol. HEALTH MAINTENANCE: Please follow-up with your Primary Card Physician and review your health maintenance to ensure it is up to date. MEDICATION CHANGES: Will decrease amlodipine-olmesartan 5-40 mg and add chlorthalidone 12.5 mg every day Labs 2 weeks Physicians and Nurse Practitioners work closely together in Preventive Cardiology. If at any time you would like to see a Physician for a visit, please let us know. Last visit with [facility] physician: Osman 06/15/21 AMBULATORY PATIENT EDUCATION Topic: Education on risk factors and medications. Instruction Provided To: Patient Cognitive Ability: Alert/Oriented Barriers: None Motivation to Learn: Interested Methods of Instruction: Verbal instruction and/or handouts. Patient Leans Best By: Multiple Methods Patient Verbalized: Understanding I personally spent 20 minutes in total time involved in the management and care of this patient. Bryce Fung APRN.CNP documented in this encounter [facility] Diagnosis Essential hypertension- Primary Unspecified essential hypertension [facility] Diagnosis Primary hypertension- Primary Unspecified essential hypertension documented in this encounter [facility] note* Diagnosis Primary hypertension- Primary Unspecified essential hypertension Dyslipidemia Other and unspecified hyperlipidemia [facility] (narrative)* Diagnostic Procedure Only (Routine) - Pending Review Specialty Diagnoses / Procedures Referred By Prasanth ríos Referred To Contact US IMAGING Diagnoses Primary hypertension Procedures US RENAL ARTERY/VEIN US RETROPERITONEAL REAL TIME W/IMAGE LIMITED Karen Mercedes APRN.CNP [id number] [place] [address] Us Imaging Referral ID Status Reason Start Date Expiration Date Visits Requested Visits Authorized [id number] Pending Review Auto-Generat ed Referral 07/02/2023 07/31/2024 1 1 [facility] Summary Purpose Family History No Family History Records FoundNo Family History Records FoundNo Family History Records FoundNo Family History Records FoundNo Family History Records FoundNo Family History Records Found Advance Directives No Advanced Directives Records FoundNo Advanced Directives Records FoundNo Advanced Directives Records FoundNo Advanced Directives Records FoundNo Advanced Directives Records FoundNo Advanced Directives Records Found Reason for Referral Specialty Diagnoses / Procedures Referred By Prasanth ríos Referred To Contact Procedures CARDIOVASCULAR MEDICINE OP FOLLOW UP APPT ORDER Karen Mercedes APRN.CNP [id number] [place] [address] Referral ID Status Reason Start Date Expiration Date Visits Requested Visits Authorized [id number] Ref Not Required PCP Requested Referral 3 10/09/2024 1 1 Additional Source Comments (unrecognized sect ion and content) No Status Records FoundNo Status Records FoundNo Status Records FoundNo Status Records FoundNo Status Records FoundNo Status Records Found INFORMATION SOURCE (unrecogn ized section and content) DATE CREATED AUTHOR AUTHOR'S ORGANIZ ATION 05/20/2018 [facility] DATE CREATED AUTHOR AUTHOR'S ORGANIZ ATION 07/13/2018 [facility] DATE CREATED AUTHOR AUTHOR'S ORGANIZ ATION 02/01/2020 [facility] DATE CREATED AUTHOR AUTHOR'S ORGANIZ ATION 09/14/2021 [facility] DATE CREATED AUTHOR AUTHOR'S ORGANIZ ATION 11/14/2023 [facility] Source Comments (unrecognize d section and content) In the event this informatio n is protected by the Federal Confidentiality of Alcohol and Drug Abuse Patient Records regulations: The Federal rules restrict any use of the information to criminally investigate or prosecute any alcohol or drug abuse patient.[facility] the event this information is protected by the Federal Confidentiality of Alcohol and Drug Abuse Patient Records regulations: The Federal rules restrict any use of the information to criminally investigate or prosecute any alcohol or drug abuse patient.[facility] the event this information is protected by the Federal Confidentiality of Alcohol and Drug Abuse Patient Records regulations: The Federal rules restrict any use of the information to criminally investigate or prosecute any alcohol or drug abuse patient.[facility] the event this information is protected by the Federal Confidentiality of Alcohol and Drug Abuse Patient Records regulations: The Federal rules restrict any use of the information to criminally investigate or prosecute any alcohol or drug abuse patient.[facility] the event this information is protected by the Federal Confidentiality of Alcohol and Drug Abuse Patient Records regulations: The Federal rules restrict any use of the information to criminally investigate or prosecute any alcohol or drug abuse patient.[facility] the event this information is protected by the Federal Confidentiality of Alcohol and Drug Abuse Patient Records regulations: The Federal rules restrict any use of the information to criminally investigate or prosecute any alcohol or drug abuse patient.[facility] the event this information is protected by the Federal Confidentiality of Alcohol and Drug Abuse Patient Records regulations: The Federal rules restrict any use of the information to criminally investigate or prosecute any alcohol or drug abuse patient.[facility] Reason for Visit (unrecogniz ed section and content) Reason Comments Follow Up Reason Onset Date Comments Refill Request 05/19/2023 Reason Comments Orders Reason Comments Hypertension Care Teams (unrecognized sec tion and content) Shoe Sticks Repairer Relationship Specialty Start Date End Date Eri Denney MD PCP - General Internal Medicine 04/22/19 [employer] St[employer] Repairer Relationship Specialty Start Date End Date Eri Denney MD PCP - General Internal Medicine 04/22/19 Shoe Sticks Repairer Relationship Specialty Start Date End Date Eri Denney MD PCP - General Internal Medicine 04/22/19 Shoe Sticks Repairer Relationship Specialty Start Date End Date Eri Denney MD PCP - General Internal Medicine 04/22/19 Shoe Sticks Repairer Relationship Specialty Start Date End Date Eri Denney MD PCP - General Internal Medicine 04/22/19 Shoe Sticks Repairer Relationship Specialty Start Date End Date Eri Denney MD PCP - General Internal Medicine 04/22/19 FOR RECORDS PERTAINING TO PATIENTS WHO ARE OR HAVE BEEN ENROLLED IN A CHEMICAL DEPENDENCY/SUBSTANCEABUSE PROGRAM, SOME INFORMATION MAY BE OMITTED. This clinical summary was aggregated from multiple sources. Caution should be exercised in using it in the provision of clinical care. This summary normalizes information from multiple sources, and as a consequence, information in this document may materially change the coding, format and clinical context of patient data. In addition, data may be omitted in some cases. CLINICAL DECISIONS SHOULD BE BASED ON THE PRIMARY CLINICAL RECORDS. [facility]. provides no warranty or guarantee of the accuracy or completeness of information in this document.
== END | disposition home or self-care (01) ==
LOC: LABSPEC 14:13
PROVIDERS: PCP Internal Medicine; Referring Provider Nurse Practitioner; Visit Provider Nurse Practitioner
DX: M54.9 Dorsalgia, unspecified (principal); R30.0 Dysuria
CPT/HCPCS: 81001; 87086

== ENCOUNTER → 2024-01-02 | Outpatient (CLI) | payer BC, SELFPAY ==
--- OUTSIDE RECORDS SUMMARY | 2024-01-02 08:22 | XMS RPT_ITS | CCD ---
Author Name Unknown Address [address] [place] [address] Organization [facility] Care Team Providers Care Teacher Education Instructor Name Role Phone PAM, BETTY Unavailable Unavailable [...] MERCEDES Referring Unavailable KAREN MERCEDES Attending Unavailable JUMANA, EFEWONGBE B Primary Care Unavailable KAREN MERCEDES [...] Start: 11-13-2023 End: 11-13-2023 ambulatory ERI DENNEY Facility:[facility] Start: 10-10-2023 End: 10-10-2023 ambulatory Karen [...] DTaP,Tdap,Td Vaccine (2 - Td or Tdap) [facility] Start: 02-18-2027 Lipid 1996 panel - Serum or Plasma Lipid Screening [facility] Start: 02-18-2027 LIPID SCREEN LIPID SCREEN [facility] Start: 06-19-2026 DIABETES SCREEN DIABETES SCREEN [facility] Start: 06-19-2026 Diabetes Screening Diabetes Screening [facility] Start: 02-18-2025 DIABETES SCREEN DIABETES SCREEN [facility] Start: 07-25-2023 Influenza vaccination INFLUENZA (#1) [facility] Start: 11-24-2022 DEPRESSION ASSESSMENT DEPRESSION ASSESSMENT [facility] Start: 2021 SHINGRIX VACCINE (1 of 2) SHINGRIX VACCINE (1 of 2) [facility] Start: 07-25-2021 Influenza vaccination Flu vaccine (#1) [facility] Work Phone: Start: 2016 COLOGUARD (FIT-DNA) COLOGUARD (FIT-DNA) [facility] Start: 2016 Colonoscopy COLONOSCOPY [facility] Start: 2016 COLORECTAL CANCER SCREENING COLORECTAL CANCER SCREENING [facility] Start: [address] COLONOGRAPHY [facility] Start: 2016 FECAL OCCULT BLOOD FECAL OCCULT BLOOD [facility] Start: 2016 SIGMOIDOSCOPY SIGMOIDOSCOPY [facility] Start: 1990 Urine microalbumin profile DTAP,TDAP,TD (1 - Tdap) [facility] Start: 1989 ANNUAL PCP TEAM CHRONIC DISEASE VISIT ANNUAL PCP TEAM CHRONIC DISEASE VISIT [facility] Start: 1989 BP CONTROLLED (<130/80) BP CONTROLLED (<130/80) [facility] in Start: 1989 HEPATITIS C SCREENING HEPATITIS C SCREENING [facility] Start: 1989 HIV SCREENING HIV SCREENING [facility] Start: 1983 COVID-19 Vaccine (1) COVID-19 Vaccine (1) [facility] Work Phone: Start: 1977 PNEUMOCOCCAL (1 - PCV) PNEUMOCOCCAL (1 - PCV) [facility] Start: 1977 Pneumococcal vaccination Pneumococcal Vaccine (1 - PCV) [facility] Start: 03-05-1972 COVID-19 VACCINE (#1) COVID-19 VACCINE (#1) [facility] Start: 1971 HEPATITIS B (1 of 3 - 3-dose series) HEPATITIS B (1 of 3 - 3-dose series) [facility] Start: 1971 Hepatitis B Vaccine (1 of 3 - 3-dose series) Hepatitis B Vaccine (1 of 3 - 3-dose series) [facility] End: 07-31-2024 US RENAL ARTERY/VEIN US RENAL ARTERY/VEIN Radiology Routine Primary hypertension 1 Occurrences starting 07/02/2023 until 07/31/2024 [facility] Work Phone: Payers Date Payer Category Payer Unknown [employer] CECE CASIANO PPO [id number] 2020-Present [phone] [address] [place] [address] PPO [id number] 2020 Unknown [id number] 2015 Unknown [id number] Social History Date Type Detail Facility Tobacco smoking stat [facility] Unknown if ever smoked [facility] Work Phone: Start: 1971 Sex Assigned At Not on file [facility] Work Phone: Start: 11-12-2021 Tobacco smoking stat [facility] Smokes tobacco daily [facility] Work Phone: End: 03-23-2019 History of tobacco use Cigarette Smoker [facility] Work Phone: Start: 11-12-2021 End: 05-16-2023 Cigarettes smoked current (pack per day) - Reported 0.5 [facility] Start: 11-12-2021 Tobacco use and exposure Smokeless tobacco non-user [facility] Work Phone: Start: 02-18-2022 End: 10-16-2023 Alcohol intake Current non-drinker of alcohol (finding) [facility] Start: 1970 Sex Assigned At Male [facility] Start: 02-18-2022 End: 05-16-2023 Tobacco use panel [facility] Adult Depression Screening Assessment 0 [facility] Start: 07-09-2021 Gender identity Identifies as male gender (finding) [facility] Clinical Notes 05-16-2023 to 11-13-2023 Karen Mercedes APRN.JARVIS - 10/10/2023 8:00 AM Karen Cheek APRN.CNP - 07/02/2023 2:40 PM EDTTelephone Encounter - Bryce Fung APRN.CNP - 06/19/2023 8:58 AM EDT Note Date & Type Note Facility 11-13-2023 Note HNO ID: [id number] Author: Karen Mercedes APRN.JARVIS Service: ? Author Type: Nurse Practitioner Type: Progress Notes Filed: 11/13/2023 4:34 PM Note Text: [facility] [place] [facility] Department of Cardiovascular Medicine SECTION [...] visit. Either the patient or their legal telecommunications sales representative has been informed of the [...] 74 - 99 mg/dL Final Comment: The [place] Diabetes Association (ADA) provides guidance for cutoff [...] Standards of Medical Care in Diabetes 2016, [place] [employer]. Diabetes Care. 2016.39(Suppl 1). Albumin/Creat Ratio Date Value Ref Range Status 02/18/2022 <22 <30 mg/g Final Comment: Adult Male and Female Nephrotic Criteria: <30 mg/g is considered normal to mildly increased 30-300 mg/g is considered moderately increased (more content not included)... [facility] 10-10-2023 Note HNO ID: [id number] Author: Karen Mercedes APRN.INDUSTRIAL TRAINING SPECIALIST Service: ? Author Type: Nurse Practitioner Type: Progress Notes Filed: 10/16/2023 11:45 PM Note Text: [facility] [place] [facility] Department of Cardiovascular Medicine SECTION [...] visit. Either the patient or their legal telecommunications sales representative has been informed of the [...] back pain after starting diuretic, went to program eligibility specialist, xrays revealed diffuse idopathic hypertosis, MRI [...] 74 - 99 mg/dL Final Comment: The [place] Diabetes Association (ADA) provides guidance for cutoff [...] a patient wi (more content not included)... [facility] 10-10-2023 History of Presen t illness Narrative Images from the original note were not included. [facility] [place] [facility] Department of Cardiovascular Medicine SECTION [...] visit. Either the patient or their legal telecommunications sales representative has been informed of the [...] back pain after starting diuretic, went to program eligibility specialist, xrays revealed diffuse idopathic hypertosis, MRI [...] 74 - 99 mg/dL Final Comment: The [place] Diabetes Association (ADA) provides guidance for cutoff [...] Standards of Medical Care in Diabetes 2016, [place] [employer]. Diabetes Care. 2016.39(Suppl 1). Albumin/Creat [...] from olive oil, olives, nuts, and avocado. North 3 fats are another heart healthy fat [...] please let us know. [facility] Dr Brew[facility] AMBULATORY PATIENT [...] Karen Mercedes APRN.JARVIS documented in this encounter [facility] 07-02-2023 Note HNO ID: [id number] Author: Karen Mercedes APRN.CNP Service: ? Author Type: Nurse Practitioner Type: Progress Notes Filed: 07/07/2023 10:55 PM Note Text: [facility] [place] [facility] Department of Cardiovascular Medicine SECTION [...] visit. Either the patient or their legal telecommunications sales representative has been informed of the [...] 74 - 99 mg/dL Final Comment: The [place] Diabetes Association (ADA) provides guidance for cutoff [...] Standards of Medical Care in Diabetes 2016, [place] Diabetes [employer]. Diabetes Care. 2016.39(Suppl 1). Albumin/Creat Ratio Date Value Ref Range Status 02/18/2022 <22 <30 mg/g Final Comment: Adult Male and Female Nephrotic Crit (more content not included)... [facility] 07-02-2023 History of Presen t illness Narrative Images from the original note were not included. [facility] [place] [facility] Department of Cardiovascular Medicine SECTION [...] visit. Either the patient or their legal telecommunications sales representative has been informed of the [...] 74 - 99 mg/dL Final Comment: The [place] Diabetes Association (ADA) provides guidance for cutoff [...] Standards of Medical Care in Diabetes 2016, [place] [employer]. Diabetes Care. 2016.39(Suppl 1). Albumin/Creat [...] from olive oil, olives, nuts, and avocado. North 3 fats are another heart healthy fat [...] Karen Mercedes APRN.CNP documented in this encounter [facility] 06-19-2023 Miscellaneous Notes Lab orders placed Bryce Fung APRN.CNP Pt came in stating he needed lab work done from Bryce Fung but nothing in active requests. Please review and advise Darling Christian documented in this encounter [facility] 05-16-2023 Note HNO ID: [id number] Author: Bryce Fung APRN.CNP Service: ? Author Type: Nurse Practitioner Type: Progress Notes Filed: 05/19/2023 7:14 AM Note Text: [facility] [place] [facility] Department of Cardiovascular Medicine SECTION [...] visit. Either the patient or their legal telecommunications sales representative has been informed of the [...] 74 - 99 mg/dL Final Comment: The [place] Diabetes Association (ADA) provides guidance for cutoff [...] Standards of Medical Care in Diabetes 2016, [place] [employer]. Diabetes Care. 2016.39(Suppl 1). Albumin/Creat [...] the International Soci (more content not included)... [facility] 05-16-2023 History of Presen t illness Narrative Images from the original note were not included. [facility] [place] [facility] Department of Cardiovascular Medicine SECTION [...] visit. Either the patient or their legal telecommunications sales representative has been informed of the [...] 74 - 99 mg/dL Final Comment: The [place] Diabetes Association (ADA) provides guidance for cutoff [...] Standards of Medical Care in Diabetes 2016, [place] Diabetes [employer]. Diabetes Care. 2016.39(Suppl 1). Albumin/Creat [...] Call if above 130/80. -Low sodium/DASH diet. 1797-0320 mg per day We now recommend the [...] from olive oil, olives, nuts, and avocado. North 3 fats are another heart healthy fat [...] Bryce Fung APRN.CNP documented in this encounter [facility] documented [facility] encounter [facility] Diagnosis Essential hypertension- Primary Unspecified essential hypertension documented [facility] this encounter [facility] Diagnosis Primary hypertension- Primary Unspecified essential hypertension documented in this encounter [facility] note* Diagnosis Primary hypertension- Primary Unspecified essential hypertension Dyslipidemia Other and unspecified hyperlipidemia documented [facility] this encounter [facility] Diagnostic Procedure Only (Routine) - Pending Review Specialty Diagnoses / Procedures Referred By Prasanth ríos Referred To Contact US IMAGING Diagnoses Primary hypertension Procedures US RENAL ARTERY/VEIN US RETROPERITONEAL REAL TIME W/IMAGE LIMITED Karen Mercedes APRN.CNP [id number] [place] [address] Us Imaging Referral ID Status Reason Start Date Expiration Date Visits Requested Visits Authorized [id number] Pending Review Auto-Generat ed Referral 07/02/2023 07/31/2024 1 1 [facility] Summary Purpose Family History No Family History [...] FOLLOW UP APPT ORDER Karen Mercedes APRN.CNP [id number] [place] [address] Referral ID Status Reason Start Date Expiration Date Visits Requested Visits Authorized [id number] Ref Not Required PCP Requested Referral 3 10/09/2024 1 1 Additional Source Comments (unrecognized sect ion and content) No Status Records FoundNo Status Records FoundNo Status Records FoundNo Status Records FoundNo Status Records FoundNo Status Records Found INFORMATION SOURCE (unrecogn ized section and content) DATE CREATED AUTHOR AUTHOR'S ORGANIZ ATION 05/20/2018 [facility] DATE CREATED AUTHOR AUTHOR'S ORGANIZ ATION 07/13/2018 [facility] DATE CREATED AUTHOR AUTHOR'S ORGANIZ ATION 02/01/2020 [facility] DATE CREATED AUTHOR AUTHOR'S ORGANIZ ATION 09/14/2021 [facility] DATE CREATED AUTHOR AUTHOR'S ORGANIZ ATION 11/14/2023 [facility] Source Comments (unrecognize d section and content) In the event this informatio n is protected by the Federal Confidentiality of Alcohol and Drug Abuse Patient Records regulations: The Federal rules restrict any use of the information to criminally investigate or prosecute any alcohol or drug abuse patient.[facility] the event this information is protected by the Federal Confidentiality of Alcohol and Drug Abuse Patient Records regulations: The Federal rules restrict any use of the information to criminally investigate or prosecute any alcohol or drug abuse patient.[facility] the event this information is protected by the Federal Confidentiality of Alcohol and Drug Abuse Patient Records regulations: The Federal rules restrict any use of the information to criminally investigate or prosecute any alcohol or drug abuse patient.[facility] the event this information is protected by the Federal Confidentiality of Alcohol and Drug Abuse Patient Records regulations: The Federal rules restrict any use of the information to criminally investigate or prosecute any alcohol or drug abuse patient.[facility] the event this information is protected by the Federal Confidentiality of Alcohol and Drug Abuse Patient Records regulations: The Federal rules restrict any use of the information to criminally investigate or prosecute any alcohol or drug abuse patient.[facility] the event this information is protected by the Federal Confidentiality of Alcohol and Drug Abuse Patient Records regulations: The Federal rules restrict any use of the information to criminally investigate or prosecute any alcohol or drug abuse patient.[facility] the event this information is protected by the Federal Confidentiality of Alcohol and Drug Abuse Patient Records regulations: The Federal rules restrict any use of the information to criminally investigate or prosecute any alcohol or drug abuse patient.[facility] Reason for Visit (unrecogniz ed section and content) Reason Comments Follow Up Reason Onset Date Comments Refill Request 05/19/2023 Reason Comments Orders Reason Comments Hypertension Care Teams (unrecognized sec tion and content) Teacher Education Instructor Relationship Specialty Start Date End Date Eri Denney MD PCP - General Internal Medicine 04/22/19 Teacher Education Instructor Relationship Specialty Start Date End Date Eri Denney MD PCP - General Internal Medicine 04/22/19 Teacher Education Instructor Relationship Specialty Start Date End Date Eri Denney MD PCP - General Internal Medicine 04/22/19 Teacher Education Instructor Relationship Specialty Start Date End Date Eri Denney MD PCP - General Internal Medicine 04/22/19 Teacher Education Instructor Relationship Specialty Start Date End Date Eri Denney MD PCP - General Internal Medicine 04/22/19 Teacher Education Instructor Relationship Specialty Start Date End Date Eri [...] BE BASED ON THE PRIMARY CLINICAL RECORDS. [facility] Primary Data [facility]. provides no warranty or guarantee of the accuracy or completeness of information in this document.
[2024-01-02 12:28] LABS: Vitamin D,25 Hydroxy 33.4 ng/mL
[2024-01-02 12:36] LABS: ALB/GLOB Ratio 1.1 RATIO (0.9-2.4); AST(SGOT) 23 U/L (15-37); Alanine Aminotransfer ALT/SGPT 44 U/L (16-61); Albumin, Serum 3.8 g/dL (3.2-5.0); Alkaline Phosphatase 86 U/L (45-117); Anion Gap 5 (5-15); BUN 14 mg/dL (7-18); BUN/Creat Ratio 13.5 RATIO (10-20); Calcium,Total 8.8 mg/dL (8.5-10.1); Chloride 107 mmol/L (98-107); Cholesterol 188 mg/dL (200); Creatinine, Serum 1.04 mg/dL (0.70-1.30); EST Glomerular Filtration Rate 80 mL/min (>60); Est Glom Filt Rate - Afr Amer 96 mL/min (>60); Globulin 3.6 g/dL (2.2-4.2); Glucose 103 mg/dL (74-106); High Density Lipoprotein 44 mg/dL; PSA,Total - Annual Screen 0.78 ng/mL (0.00-4.00); Potassium 3.8 mmol/L (3.5-5.1); Protein, Total 7.4 g/dL (6.4-8.2); Sodium Level 141 mmol/L (136-145); Thyroid Stim Hormone (TSH) 0.91 uIU/mL (0.358-3.74); Triglycerides 98 mg/dL; Very Low Density Lipoprotein 20 mg/dL (5-40)
== END | disposition home or self-care (01) ==
LOC: BIMLAB 08:04
PROVIDERS: PCP Internal Medicine; Referring Provider Nurse Practitioner; Visit Provider Nurse Practitioner
DX: Z12.5 Encounter for screening for malignant neoplasm of prostate (principal); M54.9 Dorsalgia, unspecified; N20.0 Calculus of kidney; E78.5 Hyperlipidemia, unspecified
CPT/HCPCS: 36415; 80053; 80061; 82306; 84153; 84443; G0103

== ENCOUNTER → 2024-01-07 | Outpatient (CLI) | payer BC, SELFPAY ==
--- NOTE | 2024-01-07 15:39 | CT_ITS ---
STUDY: CT ABDOMEN AND PELVIS WITHOUT CONTRAST REASON FOR EXAM: Male, 53 years old. Nephrolithiasis RADIATION DOSAGE (If Supplied By Facility): CTDIvol = ( 21.39 ) mGy, DLP = ( 1133.12 ) mGycm TECHNIQUE: Transaxial images were obtained from the dome of the diaphragm to the symphysis pubis without oral contrast, and without intravenous contrast. Sagittal and coronal images were reconstructed. Individualized dose optimization techniques were used for this CT. COMPARISON: None. FINDINGS: The visualized lung bases are unremarkable. The visualized portions of the heart are within normal limits. Normal liver. Normal gallbladder and extrahepatic biliary system. Normal spleen. Normal pancreas. Normal bilateral adrenal glands. Normal right kidney. Mildly dilated left renal pelvis. No obstructive uropathy is seen at this time. There is a small hiatal hernia. Normal small intestine. Normal colon. The appendix is visualized and appears normal. There is scattered atherosclerotic calcification of the abdominal aorta, without a demonstrated aneurysm. Normal inferior vena cava. Normal retroperitoneum. Normal urinary bladder. Prosthetic calcification. Small benign-appearing bilateral inguinal lymph nodes. Normal abdominal wall. This space narrowing and disc degeneration at the L5-S1 level. Spondylosis. CT/Abdomen/Pelvis without Cont IMPRESSION: Mild degree of the left renal dilatation although no obstructive uropathy is seen at this time. Electronically Signed: Dustin Martin MD at 16:07 EST ,
--- OUTSIDE RECORDS SUMMARY | 2024-01-07 18:59 | XMS RPT_ITS | CCD ---
Author Name Unknown Address [address] [place] [address] Organization [facility] Care Team Providers Care Electronics Mechanic Name Role Phone PAM, BETTY Unavailable Unavailable [...] Provider UnavailEri Gonzales MD Primary Care Provider [phone] KAREN MERCEDES Attending Unavailable OLEGHE, EFEWONGBE B [...] Start: 11-13-2023 End: 11-13-2023 ambulatory ERI DENNEY Facility:[facility] Start: 10-10-2023 End: 10-10-2023 ambulatory Karen [...] DTaP,Tdap,Td Vaccine (2 - Td or Tdap) [facility] Start: 02-18-2027 Lipid 1996 panel - Serum or Plasma Lipid Screening [facility] Start: 02-18-2027 LIPID SCREEN LIPID SCREEN [facility] Start: 06-19-2026 DIABETES SCREEN DIABETES SCREEN [facility] Start: 06-19-2026 Diabetes Screening Diabetes Screening [facility] Start: 02-18-2025 DIABETES SCREEN DIABETES SCREEN [facility] Start: 07-25-2023 Influenza vaccination INFLUENZA (#1) [facility] Start: 11-24-2022 DEPRESSION ASSESSMENT DEPRESSION ASSESSMENT [facility] Start: 2021 SHINGRIX VACCINE (1 of 2) SHINGRIX VACCINE (1 of 2) [facility] Start: 07-25-2021 Influenza vaccination Flu vaccine (#1) [facility] Work Phone: Start: 2016 COLOGUARD (FIT-DNA) COLOGUARD (FIT-DNA) [facility] Start: 2016 Colonoscopy COLONOSCOPY [facility] Start: 2016 COLORECTAL CANCER SCREENING COLORECTAL CANCER SCREENING [facility] Start: [address] COLONOGRAPHY [facility] Start: 2016 FECAL OCCULT BLOOD FECAL OCCULT BLOOD [facility] Start: 2016 SIGMOIDOSCOPY SIGMOIDOSCOPY [facility] Start: 1990 Urine microalbumin profile DTAP,TDAP,TD (1 - Tdap) [facility] Start: 1989 ANNUAL PCP TEAM CHRONIC DISEASE VISIT ANNUAL PCP TEAM CHRONIC DISEASE VISIT [facility] Start: 1989 BP CONTROLLED (<130/80) BP CONTROLLED (<130/80) [facility] Start: 1989 HEPATITIS C SCREENING HEPATITIS C SCREENING [facility] Start: 1989 HIV SCREENING HIV SCREENING [facility] Start: 1983 COVID-19 Vaccine (1) COVID-19 Vaccine (1) [facility] Work Phone: Start: 1977 PNEUMOCOCCAL (1 - PCV) PNEUMOCOCCAL (1 - PCV) [facility] Start: 1977 Pneumococcal vaccination Pneumococcal Vaccine (1 - PCV) [facility] Start: 03-05-1972 COVID-19 VACCINE (#1) COVID-19 VACCINE (#1) [facility] Start: 1971 HEPATITIS B (1 of 3 - 3-dose series) HEPATITIS B (1 of 3 - 3-dose series) [facility] Start: 1971 Hepatitis B Vaccine (1 of 3 - 3-dose series) Hepatitis B Vaccine (1 of 3 - 3-dose series) [facility] End: 07-31-2024 US RENAL ARTERY/VEIN US RENAL ARTERY/VEIN Radiology Routine Primary hypertension 1 Occurrences starting 07/02/2023 until 07/31/2024 [facility] Work Phone: Payers Date Payer Category Payer Unknown LIS CECE CASIANO PPO [id number] 2020-Present [phone] [address] [place] [address] PPO [id number] 2020 Unknown [id number] 2015 Unknown [id number] Social History Date Type Detail Facility Tobacco smoking stat [facility] Unknown if ever smoked [facility] Work Phone: Start: 1971 Sex Assigned At Not on file [facility] Work Phone: Start: 11-12-2021 Tobacco smoking stat [facility] Smokes tobacco daily [facility] Work Phone: End: 03-23-2019 History of tobacco use Cigarette Smoker [facility] Work Phone: Start: 11-12-2021 End: 05-16-2023 Cigarettes smoked current (pack per day) - Reported 0.5 [facility] Start: 11-12-2021 Tobacco use and exposure Smokeless tobacco non-user [facility] Work Phone: Start: 02-18-2022 End: 10-16-2023 Alcohol intake Current non-drinker of alcohol (finding) [facility] Start: 1970 Sex Assigned At Male [facility] Start: 02-18-2022 End: 05-16-2023 Tobacco use panel [facility] Adult Depression Screening Assessment 0 [facility] Start: 07-09-2021 Gender identity Identifies as male gender (finding) [facility] Clinical Notes 05-16-2023 to 11-13-2023 Karen Mercedes APRN.JARVIS - 10/10/2023 8:00 AM Karen Cheek APRN.CNP - 07/02/2023 2:40 PM EDTTelephone Encounter - Bryce Fung APRN.CNP - 06/19/2023 8:58 AM EDT Note Date & Type Note Facility 11-13-2023 Note HNO ID: [id number] Author: Karen Mercedes APRN.JARVIS Service: ? Author Type: Nurse Practitioner Type: Progress Notes Filed: 11/13/2023 4:34 PM Note Text: [facility] Department of Cardiovascular Medicine SECTION [...] visit. Either the patient or their legal business banking representative has been informed of the risks [...] 74 - 99 mg/dL Final Comment: The [place] Diabetes Association (ADA) provides guidance for cutoff [...] Standards of Medical Care in Diabetes 2016, [place] [employer]. Diabetes Care. 2016.39(Suppl 1). Albumin/Creat Ratio Date Value Ref Range Status 02/18/2022 <22 <30 mg/g Final Comment: Adult Male and Female Nephrotic Criteria: <30 mg/g is considered normal to mildly increased 30-300 mg/g is considered moderately increased (more content not included)... [facility] 10-10-2023 Note HNO ID: [id number] Author: Karen Mercedes APRN.OPERATIONS GENERAL AGENT Service: ? Author Type: Nurse Practitioner Type: Progress Notes Filed: 10/16/2023 11:45 PM Note Text: [facility] Department of Cardiovascular Medicine SECTION [...] visit. Either the patient or their legal business banking representative has been informed of the risks [...] back pain after starting diuretic, went to sales account specialist, xrays revealed diffuse idopathic hypertosis, MRI [...] 74 - 99 mg/dL Final Comment: The [place] Diabetes Association (ADA) provides guidance for cutoff [...] a patient wi (more content not included)... [facility] 10-10-2023 History of Presen t illness Narrative Images from the original note were not included. [facility] Department of Cardiovascular Medicine SECTION [...] visit. Either the patient or their legal business banking representative has been informed of the risks [...] back pain after starting diuretic, went to sales account specialist, xrays revealed diffuse idopathic hypertosis, MRI [...] 74 - 99 mg/dL Final Comment: The [place] Diabetes Association (ADA) provides guidance for cutoff [...] Standards of Medical Care in Diabetes 2016, [place] [employer]. Diabetes Care. 2016.39(Suppl 1). Albumin/Creat [...] from olive oil, olives, nuts, and avocado. [place] 3 fats are another heart healthy fat [...] please let us know. [facility] Dr Brewer 06/15/21 AMBULATORY PATIENT EDUCATION [...] Karen Mercedes APRN.JARVIS documented in this encounter [facility] 07-02-2023 Note HNO ID: [id number] Author: Karen Mercedes APRN.CNP Service: ? Author Type: Nurse Practitioner Type: Progress Notes Filed: 07/07/2023 10:55 PM Note Text: [facility] Department of Cardiovascular Medicine SECTION [...] visit. Either the patient or their legal business banking representative has been informed of the risks [...] 74 - 99 mg/dL Final Comment: The [place] Diabetes Association (ADA) provides guidance for cutoff [...] Standards of Medical Care in Diabetes 2016, [place] [employer]. Diabetes Care. 2016.39(Suppl 1). Albumin/Creat Ratio Date Value Ref Range Status 02/18/2022 <22 <30 mg/g Final Comment: Adult Male and Female Nephrotic Crit (more content not included)... [facility] 07-02-2023 History of Presen t illness Narrative Images from the original note were not included. [facility] Department of Cardiovascular Medicine SECTION [...] visit. Either the patient or their legal business banking representative has been informed of the risks [...] 74 - 99 mg/dL Final Comment: The [place] Diabetes Association (ADA) provides guidance for cutoff [...] Standards of Medical Care in Diabetes 2016, [place] [employer]. Diabetes Care. 2016.39(Suppl 1). Albumin/Creat [...] from olive oil, olives, nuts, and avocado. [place] 3 fats are another heart healthy fat [...] Karen Mercedes APRN.CNP documented in this encounter [facility] 06-19-2023 Miscellaneous Notes Lab orders placed Bryce Fung APRN.CNP Pt came in stating he needed lab work done from Bryce Fung but nothing in active requests. Please review and advise Darling Christian documented in this encounter [facility] 05-16-2023 Note HNO ID: [id number] Author: Bryce Fung APRN.CNP Service: ? Author Type: Nurse Practitioner Type: Progress Notes Filed: 05/19/2023 7:14 AM Note Text: [facility] Department of Cardiovascular Medicine SECTION [...] visit. Either the patient or their legal business banking representative has been informed of the risks [...] 74 - 99 mg/dL Final Comment: The [place] Diabetes Association (ADA) provides guidance for cutoff [...] Standards of Medical Care in Diabetes 2016, [place] [employer] Association. Diabetes Care. 2016.39(Suppl 1). Albumin/Creat [...] the International Soci (more content not included)... [facility] 05-16-2023 History of Presen t illness Narrative Images from the original note were not included. [facility] Department of Cardiovascular Medicine SECTION [...] visit. Either the patient or their legal business banking representative has been informed of the risks [...] 74 - 99 mg/dL Final Comment: The [place] Diabetes Association (ADA) provides guidance for cutoff [...] Standards of Medical Care in Diabetes 2016, [place] [employer]. Diabetes Care. 2016.39(Suppl 1). Albumin/Creat [...] Call if above 130/80. -Low sodium/DASH diet. 4838-2942 mg per day We now recommend the [...] from olive oil, olives, nuts, and avocado. [place] 3 fats are another heart healthy fat [...] Bryce Fung APRN.CNP documented in this encounter [facility] Diagnosis Essential hypertension- Primary Unspecified essential hypertension [facility] Diagnosis Primary hypertension- Primary Unspecified essential hypertension documented in this encounter [facility] note* Diagnosis Primary hypertension- Primary Unspecified essential hypertension Dyslipidemia Other and unspecified hyperlipidemia [facility] Diagnostic Procedure Only (Routine) - Pending Review Specialty Diagnoses / Procedures Referred By Prasanth ríos Referred To Contact US IMAGING Diagnoses Primary hypertension Procedures US RENAL ARTERY/VEIN US RETROPERITONEAL REAL TIME W/IMAGE LIMITED Karen Mercedes APRN.CNP [id number] [place] [address] Us Imaging Referral ID Status Reason Start Date Expiration Date Visits Requested Visits Authorized [id number] Pending Review Auto-Generat ed Referral 07/02/2023 07/31/2024 1 1 [facility] Summary Purpose Family History No Family [...] FOLLOW UP APPT ORDER Karen Mercedes APRN.CNP [id number] [place] [address] Referral ID Status Reason Start Date Expiration Date Visits Requested Visits Authorized [id number] Ref Not Required PCP Requested Referral 3 10/09/2024 1 1 Additional Source Comments (unrecognized sect ion and content) No Status Records FoundNo Status Records FoundNo Status Records FoundNo Status Records FoundNo Status Records FoundNo Status Records Found INFORMATION SOURCE (unrecogn ized section and content) DATE CREATED AUTHOR AUTHOR'S ORGANIZ ATION 05/20/2018 [facility] DATE CREATED AUTHOR AUTHOR'S ORGANIZ ATION 07/13/2018 [facility] DATE CREATED AUTHOR AUTHOR'S ORGANIZ ATION 02/01/2020 [facility] ([place]) DATE CREATED AUTHOR AUTHOR'S ORGANIZ ATION 09/14/2021 [facility] DATE CREATED AUTHOR AUTHOR'S ORGANIZ ATION 11/14/2023 [facility] Source Comments (unrecognize d section and content) In the event this informatio n is protected by the Federal Confidentiality of Alcohol and Drug Abuse Patient Records regulations: The Federal rules restrict any use of the information to criminally investigate or prosecute any alcohol or drug abuse patient.[facility] the event this information is protected by the Federal Confidentiality of Alcohol and Drug Abuse Patient Records regulations: The Federal rules restrict any use of the information to criminally investigate or prosecute any alcohol or drug abuse patient.[facility] the event this information is protected by the Federal Confidentiality of Alcohol and Drug Abuse Patient Records regulations: The Federal rules restrict any use of the information to criminally investigate or prosecute any alcohol or drug abuse patient.[facility] the event this information is protected by the Federal Confidentiality of Alcohol and Drug Abuse Patient Records regulations: The Federal rules restrict any use of the information to criminally investigate or prosecute any alcohol or drug abuse patient.[facility] the event this information is protected by the Federal Confidentiality of Alcohol and Drug Abuse Patient Records regulations: The Federal rules restrict any use of the information to criminally investigate or prosecute any alcohol or drug abuse patient.[facility] the event this information is protected by the Federal Confidentiality of Alcohol and Drug Abuse Patient Records regulations: The Federal rules restrict any use of the information to criminally investigate or prosecute any alcohol or drug abuse patient.[facility] the event this information is protected by the Federal Confidentiality of Alcohol and Drug Abuse Patient Records regulations: The Federal rules restrict any use of the information to criminally investigate or prosecute any alcohol or drug abuse patient.[facility] Reason for Visit (unrecogniz ed section and content) Reason Comments Follow Up Reason Onset Date Comments Refill Request 05/19/2023 Reason Comments Orders Reason Comments Hypertension Care Teams (unrecognized sec tion and content) Electronics Mechanic Relationship Specialty Start Date End Date Eri Denney MD PCP - General Internal Medicine 04/22/19 Electronics Mechanic Relationship Specialty Start Date End Date Eri Denney MD PCP - General Internal Medicine 04/22/19 Electronics Mechanic Relationship Specialty Start Date End Date Eri Denney MD PCP - General Internal Medicine 04/22/19 Electronics Mechanic Relationship Specialty Start Date End Date Eri Denney MD PCP - General Internal Medicine 04/22/19 Electronics Mechanic Relationship Specialty Start Date End Date Eri Denney MD PCP - General Internal Medicine 04/22/19 Electronics Mechanic Relationship Specialty Start Date End Date Eri [...] BE BASED ON THE PRIMARY CLINICAL RECORDS. [facility] [employer] [facility]. provides no warranty or guarantee of the accuracy or completeness of information in this document.
== END | disposition home or self-care (01) ==
LOC: CT 15:38
PROVIDERS: PCP Internal Medicine; Referring Provider Nurse Practitioner; Visit Provider Nurse Practitioner
DX: N20.0 Calculus of kidney (principal)
CPT/HCPCS: 74176

== ENCOUNTER 2025-04-04 09:04 | Emergency (ER) | payer BC, SELFPAY ==
[2025-04-04 09:05] VITALS: BP 207/100; PULSE 80; RESP 18; TEMP 36.5; O2SAT 99; BMI 36.1
--- NOTE | 2025-04-04 09:48 | EKG12_ITS ---
Test Reason : HTN Blood Pressure : */* mmHG Vent. Rate : 64 BPM Atrial Rate : 64 BPM P-R Int : 180 ms QRS Dur : 94 ms QT Int : 418 ms P-R-T Axes : 64 30 30 degrees QTcB Int : 431 ms Normal sinus rhythm Normal ECG Confirmed by Oscar Chaparro ([id number]), market editor SLADE LEDEZMA ([id number]) on 04/05/2025 9:16:43 AM Referred By: Confirmed By: Oscar Chaparro
--- NOTE | 2025-04-04 09:49 | EX.ED.DYSGE1 ---
HPI History of Present Illness Chief Complaint: Hypertension Informant: patient Onset/Context/Timing Onset: Today Context: Gradual Onset Timing: Continuous Quality: Elevated blood pressure Location: Generalized Worsened by: Nothing Relieved by: Nothing Narrative Narrative: Patient presents with elevated blood pressures that became worse today. Patient states he was seen at [facility] emergency department a few days ago and had blood pressure medication adjustments done at that time. The patient states his blood pressure was in the 140s and 150s over 70s and 80s over the weekend. Patient states that today his blood pressure was 207/100. Patient denies any chest pain. Patient admits to some blurred vision. Patient denies any nausea or vomiting. Patient denies any shortness of breath or cough. [facility] Medical History Dermatitis Rash Dysuria Dysuria Nicotine dependence Obesity Anxiety Essential hypertension Hyperlipidemia GERD (gastroesophageal reflux disease) Kidney stones Chronic headaches Atypical chest pain Home Medications ?Medication ?Instructions ?Recorded ?Last Taken ?Type carvedilol 12.5 mg tablet 25 mg PO DAILY 11/01/21 04/04/25 History omeprazole 40 mg capsule,delayed 40 mg PO DAILY #90 caps 11/01/21 04/03/25 Rx release ibuprofen 200 mg tablet 600 mg PO Q6H PRN fever or pain 08/21/23 Unknown History amlodipine 5 mg-olmesartan 40 mg 1 tab PO DAILY 04/04/25 04/03/25 History tablet Allergy/AdvReac Type Severity Reaction Status Date / Time No Known Allergies Allergy Verified 04/04/25 09:07 Family History Sister Anxiety Brother Cancer Father Hypertension High cholesterol Mother Hypertension High cholesterol Surgical History no surgical history no surgical history Social History (Updated 04/04/25 @ 11:[address] Kwesi Vinson DO) Smoking Status: Former smoker alcohol intake: never substance use type: does not use what type of physical activity do you participate in: other details: Elliptical frequency: 3-4 times per week ROS ROS ED Constitutional Constitutional ED: Denies chills or fever(s) Eyes Eyes: Reports blurry vision; Denies change in vision ENT ENT ED: Denies rhinorrhea or sore throat Cardiovascular Cardiovascular: Denies chest pain or palpitations Respiratory/Chest Respiratory/Chest: Denies cough or dyspnea Gastrointestinal Gastrointestinal: Denies nausea or vomiting Genitourinary Genitourinary ED: Denies dysuria or hematuria Musculoskeletal Musculoskeletal: Denies back pain or neck pain Integumentary Denies abscess or rash Neurologic Neurologic: Denies headache(s) or weakness Allergic/Immunologic Allergic/Immunologic ED: Denies mouth swelling or urticaria EXAM Physical Exam Const Vital Signs: 04/04/25 09:04 04/04/25 09:05 04/04/25 09:48 Temperature 97.7 F L Temperature Source Oral Pulse Rate 80 Respiratory Rate 18 Respiratory Effort Normal Blood Pressure 207/100 H Blood Pressure Mean 135 Pulse Ox 99 Oxygen Delivery Method Room Air Room Air 04/04/25 10:26 04/04/25 12:00 Temperature Temperature Source Pulse Rate 64 60 Respiratory Rate 16 19 H Respiratory Effort Blood Pressure 172/96 H 143/91 H Blood Pressure Mean 121 108 Pulse Ox 98 98 Oxygen Delivery Method Room Air Room Air Positive well nourished and well developed Constitutional Narrative: BMI is 36.2 General Appearance ED: well developed and NAD HEENT Reports moist mucous membranes Neck supple and no JVD Chest Wall palpation of chest normal Resp normal respiratory effort and clear to auscultation bilaterally Cardio regular rate and regular rhythm GI non-tender and non-distended Palpation: soft Extremity normal to inspection General Extremety ED: Negative for edema or tenderness General Extremity: Negative for edema Neuro oriented x3, CN's II-XII intact bilaterally and no sensory deficits noted Sensorium / Orientation: alert Motor Exam: strength 5/5 throughout Psych mental status grossly normal MDM MDM MDM Narrative Medical decision making narrative: Differential diagnosis includes cardiac dysrhythmia, cardiac ischemia, hypertensive urgency, hypertensive emergency, uncontrolled hypertension, aortic dissection, electrolyte abnormality. EKG will be obtained to assess for cardiac dysrhythmia and cardiac ischemia. Chest x-ray will be obtained to assess for pneumonia, bronchitis, and widened mediastinum. CBC will be obtained to assess for leukocytosis and anemia. Basic metabolic profile will be obtained to assess for electrolyte abnormality and renal function. High-sensitivity troponin will be obtained to assess for cardiac ischemia. 2-hour repeat high-sensitivity troponin will be obtained to assess for ongoing cardiac ischemia. History & Record Review Additional record(s) reviewed:: Prior labs Lab Data Attestation: I reviewed the patient's lab results. Lab results narrative: CBC was reviewed and was within normal limits. Basic metabolic profile was reviewed and was within normal limits. Initial high-sensitivity troponin was reviewed and was normal at 10. 2-hour repeat high-sensitivity troponin was reviewed and was normal at 12. Labs: Laboratory Results - last 24 hr 04/04/25 04/04/25 09:25 11:23 WBC 5.8 RBC 4.94 Hgb 14.9 Hct 45.1 MCV 91.3 MCH 30.2 MCHC 33.0 RDW Std Deviation 42.7 RDW Coeff of Luis Carlos 12.8 Plt Count 228 MPV 10.8 Immature Gran % (Auto) 0.500 Neut % (Auto) 61.9 Lymph % (Auto) 23.6 Dunn % (Auto) 10.2 H Eos % (Auto) 3.1 Baso % (Auto) 0.7 Absolute Neuts (auto) 3.6 Absolute Lymphs (auto) 1.37 Nucleated RBC % 0 Sodium 139 Potassium 3.9 Chloride 104 Carbon Dioxide 25.0 Anion Gap 9 BUN 14 Creatinine 1.05 Estim Creat Clear Calc 109.25 Est GFR (MDRD) Non-Af 85 BUN/Creatinine Ratio 13.0 Glucose 117 H Calcium 9.0 Troponin T High Sens 10 Troponin T Hi Sens 2 Hr 12 Radiography Chest X-Ray - ED: 1 View, Read by ED Physician, Read by Radiologist and No Acute Disease Diagnostic Testing: Clinical Impression(s) from Imaging Studies Chest X-Ray 04/04/25 10:15 IMPRESSION: No Acute Findings. Reading Location: [facility] Portable 1 view chest x-ray was obtained. On my independent interpretation, lung otero are clear. There is normal cardiac silhouette. Bony thorax is normal. There is no acute process noted. Radiologist also interpreted the x-ray and agrees. EKG Initial EKG: Attestation: I personally reviewed and interpreted this EKG as follows: Interpretation: Sinus Rhythm (64) and No Acute Injury Pattern Comments: EKG was obtained. On my independent interpretation, it showed a normal sinus rhythm with a rate of 64. DE interval, QRS interval, and QTc intervals were all normal. Allen was normal. There are no acute ST or T wave changes. Prior EKG tracings: available for review Prior: Unchanged (02/02/2020) Treatment and Re-Evaluation :: Patient was given aspirin. Patient was given a dose of labetalol. Patient's blood pressure improved to 143/91. Patient was advised of findings. Patient was instructed to follow-up with his primary care physician in 3 to 5 days for further evaluation and adjustment of his blood pressure medications. Patient understood and was agreeable with the plan. All questions were answered. Discharge Plan Triage Chief Complaint: Hypertension ED Provider: Kwesi Vinson Dx/Rx/DC Orders Clinical Impression: Essential hypertension, GERD (gastroesophageal reflux disease) Instructions: ED Hypertension, Established Prescriptions: No Action carvedilol 12.5 mg tablet 25 mg PO DAILY Rx Instructions: must administer with a meal/food omeprazole 40 mg capsule,delayed release(DR/EC) 40 mg PO DAILY Qty: 90 1RF Patient Comments: PT TAKES NEEDED ibuprofen 200 mg tablet 600 mg PO Q6H PRN (Reason: fever or pain) amlodipine-olmesartan 5-40 mg tablet 1 tab PO DAILY Primary Care Provider: Eri Melgar Referrals: Eri Melgar MD [Primary Care Provider] - 3-5 Days Print Language: Persian Disposition Disposition: Home, Self Care
[2025-04-04 10:03] LABS: Absolute Lymphocyte Count 1.37 X10^3/uL (0.83-4.51); Absolute Neutrophil Count 3.6 X10^3/uL (2.0-7.7); Basophil# 0.04 X10^3/uL; Basophil% 0.7 % (0-1); Eosinophil# 0.18 X10^3/uL; Eosinophils% 3.1 % (0-5); Hematocrit 45.1 % (40-54); Hemoglobin 14.9 g/dL (13.0-16.5); Lymphocyte # 1.37 X10^3/ul (0.83-4.51); Lymphocyte % 23.6 % (19-41); Mean Corpuscular Hgb 30.2 pg (27.0-32.0); Mean Corpuscular Volume 91.3 fL (80-94); Mean Platelet Vol. 10.8 fl (6.2-12.0); Monocyte# 0.59 X10^3/uL; Monocyte% 10.2 % (0-10); NRBC Flagged by Analyzer 0 % (0-5); Neutrophil # 3.59 X10^3/uL (2.7-7.7); Neutrophil % 61.9 % (47-70); Platelet Count 228 K/mm3 (150-450); RBC Distribution Width CV 12.8 % (11.6-14.6); RBC Distribution Width SD 42.7 fl (35.1-43.9); Red Blood Count 4.94 M/mm3 (4.6-6.2); White Blood Count 5.8 K/mm3 (4.4-11.0)
[2025-04-04] MEDS: Aspirin 81 MG TAB.CHEW 324 MG PO (10:04)
--- NOTE | 2025-04-04 10:15 | RAD_ITS ---
PROCEDURE: CHEST 1 VIEW (PORTABLE) 04/04/2025 REASON FOR EXAM: CHEST PAIN Hypertension. TECHNIQUE: Frontal view of the chest. COMPARISON: None FINDINGS: Hardware: EKG electrodes are seen. Heart: Cardiac and mediastinal contours are stable. Lungs: The lungs are clear. Bones: Degenerative changes are identified within the thoracic spine. Other: RAD/Chest 1 View (Portable) IMPRESSION: No Acute Findings. Reading Location: [facility]
[2025-04-04 10:18] LABS: Anion Gap 9 (5-15); BUN 14 mg/dL (4-19); Chloride 104 mmol/L (98-108); Creatinine, Serum 1.05 mg/dL (0.70-1.20); EST Glomerular Filtration Rate 85 (>60); Estimated Creatinine Clearance 109.25 ml/min (50-250); Glucose 117 mg/dL (70-99); Potassium 3.9 mmol/L (3.3-5.1); Sodium Level 139 mmol/L (133-145); Troponin T High Sensitivity 10 ng/L (<=22)
[2025-04-04 10:26] VITALS: BP 172/96; PULSE 64; RESP 16; O2SAT 98
[2025-04-04 11:56] LABS: Troponin T High Sens 2 HR 12 ng/L (<=22)
[2025-04-04 12:00] VITALS: BP 143/91; PULSE 60; RESP 19; O2SAT 98
[2025-04-04 12:55] VITALS: BP 164/96; PULSE 78; RESP 19; TEMP 36.7; O2SAT 98
== END 2025-04-04 13:03 | disposition home or self-care (01) ==
PROVIDERS: Emergency Provider Emergency Medicine; PCP Internal Medicine; Visit Provider Emergency Medicine
DX: I10 Essential (primary) hypertension (principal); K21.9 Gastro-esophageal reflux disease without esophagitis; E78.5 Hyperlipidemia, unspecified; Z87.891 Personal history of nicotine dependence; Z79.899 Other long term (current) drug therapy
CPT/HCPCS: 71045; 80048; 84484; 85025; 93005; 99284; A4216